=== PATIENT | male | born 1965 | race Caucasian/White ===

== ENCOUNTER 2019-01-16 18:53 | Emergency (ER) | payer BC, SELFPAY ==
[2019-01-16 19:21] VITALS: BP 122/72; PULSE 97; RESP 22; TEMP 36.7; O2SAT 95; BMI 26.8
--- NOTE | 2019-01-16 20:35 | ED.PSYCH ---
HPI - Psych <JAZ Alberto - Last Filed: 01/16/19 21:47> General Chief Complaint: Psychiatric Symptoms Stated Complaint: Depressed/off meds Time Seen by Provider: 01/16/19 20:01 Source: patient Mode of arrival: ambulatory Limitations: no limitations History of Present Illness HPI Narrative: The patient is a 53-year-old male current smoker with history of bipolar disorder who presents with the depression. He states he is off his medications and would like refills of his medications. He states he has recently relocated to the area, and lapsed with his primary care. He denies any suicidal thoughts or ideations. He states he has had 3 drinks today but denies any illicit drug use. He denies any hallucinations. He is requesting refills of his medications to help get him through until his next PCP appointment. Related Data Previous Rx's Medication Instructions Recorded atomoxetine [Strattera] 80 mg PO QAM #14 cap 01/16/19 bupropion HCl [Wellbutrin XL] 300 mg PO QAM 14 Days #14 tab 01/16/19 gabapentin 600 mg PO TID 14 Days #42 tab 01/16/19 quetiapine [Seroquel] 200 mg PO BEDTIME 14 Days tab 01/16/19 Review of Systems <CHERYL Alberto - Last Filed: 01/16/19 21:47> Review of Systems GENERAL: Denies chills, fatigue, malaise, fever, sweats. HEENT: Denies sinus pain, ear pain, sore throat, difficulty swallowing, dizziness. RESPIRATORY: Denies dyspnea, cough, wheezing, hemoptysis, sputum. CARDIOVASCULAR: Denies chest pain, palpitations, orthopnea, edema, GASTROINTESTINAL: Denies nausea, vomiting, abdominal pain, diarrhea, constipation, melena. : Denies dysuria, frequency, incontinence, hematuria, urinary retention. MUSCULOSKELETAL: denies weakness, joint pain, or bony pain SKIN: Denies rash, skin lesions, or other NEUROLOGIC: Denies weakness, headache, numbness, change in speech, confusion, seizures, incoordination. PSYCHIATRIC: See HPI 12 point review of systems is negative except for those stated above PFSH <CHERYL Alberto - Last Filed: 01/16/19 21:47> Medical History (Updated 01/16/19 @ 21:45 by JAZ Alberto) Bipolar affect, depressed (Acute) Social History Smoking Status: Current every day smoker Social History Smoking Status: Current every day smoker Exam <JAZ Alberto - Last Filed: 01/16/19 21:47> Narrative Exam Narrative: GENERAL: This is a well-nourished, well-developed patient, no acute distress HEAD: Atraumatic. Normocephalic. No temporal or scalp tenderness. EYES: Pupils equal round and reactive. Extraocular motions intact. No scleral icterus. No injection or drainage. NECK: Trachea midline. No JVD or lymphadenopathy. Supple, nontender, no meningeal signs. CARDIOVASCULAR: Regular rate and rhythm RESPIRATORY: Clear to auscultation. Breath sounds equal bilaterally. No wheezes, rales, or rhonchi. No cough. No increased respiratory effort. No accessory muscle use. GASTROINTESTINAL: Abdomen soft, non-tender, nondistended. No hepato-splenomegaly, or palpable masses. No guarding. Active bowel sounds all 4 quadrants EXTREMITIES: No clubbing, cyanosis, or edema. No joint tenderness, effusion, or edema noted. BACK: Nontender without deformity or crepitance. No flank tenderness. NEURO: AOx3. SKIN: No rash or erythema. Initial Vital Signs Initial Vital Signs: Vital Signs Temperature 98.1 F 01/16/19 19:21 Pulse Rate 97 H 01/16/19 19:21 Respiratory Rate 22 01/16/19 19:21 Blood Pressure 122/72 01/16/19 19:21 Pulse Oximetry 95 01/16/19 19:21 <Maxime Naqvi DO - Last Filed: 01/17/19 02:42> Initial Vital Signs Initial Vital Signs: Vital Signs Temperature 98.1 F 01/16/19 19:21 Pulse Rate 97 H 01/16/19 19:21 Respiratory Rate 22 01/16/19 19:21 Blood Pressure 122/72 01/16/19 19:21 Pulse Oximetry 95 01/16/19 19:21 Course <JAZ Alberto - Last Filed: 01/16/19 21:47> Vital Signs - 8 hr 01/16/19 19:21 01/16/19 21:19 Temperature 98.1 F Pulse Rate 97 H 82 Respiratory Rate 22 14 Blood Pressure 122/72 141/82 H Pulse Oximetry 95 99 <Maxime DO Driss - Last Filed: 01/17/19 02:42> Vital Signs - 8 hr 01/16/19 19:21 01/16/19 21:19 Temperature 98.1 F Pulse Rate 97 H 82 Respiratory Rate 22 14 Blood Pressure 122/72 141/82 H Pulse Oximetry 95 99 MDM - Psych <JULY Alberto-BC - Last Filed: 01/16/19 21:47> MDM Narrative Medical decision making narrative: The patient is a 53-year-old male who presents requesting medication refills for his antidepressant medication. He is requesting refills for Seroquel gabapentin Wellbutrin and Strattera. Given that of these are controlled, he denies any suicidal ideation or plan and denies any homicidal ideation or plan, I am okay to give him 2 weeks worth of these medications. I discussed at length coming back to the emergency department for any acute concerns such as suicidal ideation or homicidal ideation. Patient states understanding and has no questions or concerns. I did give him contact information for the [facility] health coordinator to help establish a local PCP. No questions or concerns on discharge. Discharge Plan Departure Patient Disposition: Home Clinical Impression: Medication refill Discharge Date/Time: 01/16/19 21:20 Interventions: ED Discharge Assessment Last Done: 01/16/19 21:19 Instructions: Depression, DI for Bipolar Disorder Activity Restrictions/Additional Instructions: I have given you 2 weeks worth of her psychiatric medications. Please follow up with primary care provider. I have given you contact information for the [facility] resource teacher, who can help you identify a primary Care provider. Please come back to the emergency department for any acute concerns such as thoughts of hurting herself or anybody else. Prescriptions: New gabapentin 600 mg tablet 600 mg PO TID 14 Days Qty: 42 RF: 0 quetiapine [Seroquel] 100 mg tablet 200 mg PO BEDTIME 14 Days RF: 0 bupropion HCl [Wellbutrin XL] 300 mg tablet extended release 24 hr 300 mg PO QAM 14 Days Qty: 14 RF: 0 atomoxetine [Strattera] 80 mg capsule 80 mg PO QAM Qty: 14 RF: 0 Referrals: [facility] [Outside] <Maxime Naqvi DO - Last Filed: 01/17/19 02:42> Cosign ED Attending Debbie Attestation: I was immediately available in the department for consultation. Documentation has been reviewed. I agree with assessment and plan.
[2019-01-16 21:19] VITALS: BP 141/82; PULSE 82; RESP 14; O2SAT 99
== END 2019-01-16 21:20 | disposition home or self-care (01) ==
PROVIDERS: Emergency Provider Nurse Practitioner Family
DX: F32.89 Other specified depressive episodes (principal); Z76.0 Encounter for issue of repeat prescription
CPT/HCPCS: 99282

== ENCOUNTER 2019-02-20 18:40 | Emergency (ER) | payer SELFPAY ==
[2019-02-20 18:43] VITALS: BP 166/89; PULSE 121; RESP 22; TEMP 37.2; O2SAT 96; BMI 26.8
--- NOTE | 2019-02-20 18:51 | DI.RAD.S_ITS ---
PROCEDURE: XR CHEST 1V INDICATIONS: chest pain TECHNIQUE: One view of the chest was acquired. COMPARISON: None. FINDINGS: Surgical changes and devices: None. Lungs and pleura: Lungs are clear. No pleural effusions or pneumothorax. Mediastinum: Mediastinal contours appear normal. Heart size is normal. Bones and chest wall: No suspicious bony lesions. Overlying soft tissues appear unremarkable. IMPRESSION: Normal chest. Dictated by: Lupe Younger M.D. on 02/20/2019 at 20:38 Approved by: Lupe Younger M.D. on 02/20/2019 at 20:39
--- NOTE | 2019-02-20 18:55 | ED.CHESTPAIN ---
HPI - Chest Pain General Chief Complaint: Chest Pain Stated Complaint: Feeling anxious and pain in chest Time Seen by Provider: 02/20/19 18:52 Source: patient Mode of arrival: ambulatory Limitations: no limitations History of Present Illness HPI narrative: Patient is a 53-year-old male. No prior cardiac history. States that he has had chest discomfort for the past 4 days. He states it has been eye constant discomfort for the past 4 days. He is feeling very anxious about this. Occasional palpitations. He was concerned that he potentially has mixed of some of his psychiatric medications. He states he is bipolar 1 disorder. Does not have a primary provider. He currently states he is not anxious. Not suicidal. Related Data Previous Rx's Medication Instructions Recorded atomoxetine 80 mg capsule 80 mg PO QAM #30 cap 02/02/19 divalproex ER 500 mg 2,000 mg PO BEDTIME #120 tab 02/02/19 tablet,extended release 24 hr quetiapine 25 mg tablet 25 mg PO BID #60 tab 02/02/19 Allergies Allergy/AdvReac Type Severity Reaction Status Date / Time No Known Drug Allergies Allergy Unverified 01/26/19 10:06 Review of Systems Constitutional Denies headache(s) ENT Ears, Nose, Mouth, and Throat: Denies headache(s) Cardiovascular Reports chest pain, Denies edema, Denies palpitations and Denies dyspnea Respiratory Denies cough and Denies dyspnea Gastrointestinal Gastrointestinal: Denies abdominal pain, Denies nausea and Denies vomiting Musculoskeletal Denies myalgias and Denies arthralgias Integumentary/Breasts Denies rash Neurologic Denies behavioral changes, Denies confusion and Denies headache(s) Psychiatric Denies behavioral changes, Denies confusion, Denies homicidal ideation and Denies suicidal ideation Endocrine Denies palpitations Hematologic/Lymphatic Denies easy bleeding and Denies easy bruising [facility] Medical History Bipolar affect, depressed (Acute) Social History Smoking Status: Current every day smoker Social History Smoking Status: Current every day smoker Exam Initial Vital Signs Initial Vital Signs: Vital Signs Temperature 99.0 F 02/20/19 18:43 Pulse Rate 121 H 02/20/19 18:43 Respiratory Rate 22 02/20/19 18:43 Blood Pressure 166/89 H 02/20/19 18:43 Pulse Oximetry 96 02/20/19 18:43 Const General: cooperative, comfortable, well developed, well groomed and No acute distress Orientation: alert, awake and oriented x3 HENMT Head: normal to inspection and normocephalic Resp Effort & Inspection: normal respiratory effort Auscultation: clear to auscultation bilaterally Cardio Rate: tachycardic Rhythm: regular rhythm Pulses: radial pulses present GI Inspection: non-distended Skin Lesions: no lesions Rashes: no rashes Neuro General: alert, awake and oriented x3 Cognition: normal cognition Speech: speech normal Gait: normal gait Motor: muscle tone normal throughout Sensory Exam: no sensory deficits noted Extrem General: normal to inspection, capillary refill normal and No edema Psych Appearance: grossly normal and well kempt Attitude: cooperative Thought Content: suicidality Judgment: judgment good Scores GCS [place] coma scale eye opening: Spontaneous Shasta coma scale verbal response: Orientated [place] coma scale motor response: Obey commands D[place]in coma scale total score: 15 HEART Score Heart Score history: Slightly Suspicious Heart Score EKG: Normal Heart Score Age: 45-64 years old Heart Score risk factors: No known risk factors Heart Score troponin: < or = to normal limit Heart Score Total: 1 PERC Score Age greater than or equal to 50 years: Yes Heart rate greater than or equal to 100 bpm: Yes Room Air O2 Sat less than 95%: No Unilateral leg swelling: No Recent trauma or surgery: No Hemoptysis: No Prior PE or DVT: No Hormone Use: No Total PERC Score: 2 Course Orders Ordered: ED Orders 02/20/19 18:47 EKG-12 Lead Stat 02/20/19 18:51 XR chest 1V Stat 02/20/19 19:00 Acetaminophen Stat Complete Blood Count AUTO DIFF Stat Comprehensive Metabolic Panel Stat D Dimer Stat Ethanol (ETOH) Stat Lipase Stat Partial Thromboplastin Time Stat Prothrombin Time INR Stat Salicylate Stat Thyroid Stimulating Hormone Stat Troponin & CK Cardiac Panel Stat 02/20/19 20:59 Urine Drug Screen, Rapid Stat Vital Signs - 8 hr 02/20/19 18:43 02/20/19 19:12 02/20/19 20:00 Temperature 99.0 F Pulse Rate 121 H 106 H 98 H Respiratory Rate 22 18 Blood Pressure 166/89 H Blood Pressure [Left Arm] 149/92 H 164/100 H Pulse Oximetry 96 98 100 02/20/19 21:00 02/20/19 21:34 Temperature 98.6 F Pulse Rate 95 H 94 H Respiratory Rate 16 16 Blood Pressure 161/90 H Blood Pressure [Left Arm] 160/99 H Pulse Oximetry 98 98 MDM - Chest Pain Lab Data Attestation: I reviewed the patient's lab results. Result diagrams: 02/20/19 19:00 02/20/19 19:00 Lab Results 02/20/19 02/20/19 02/20/19 Range/Units 19:00 19:00 19:00 WBC 7.7 (4.5-11.0) X10^3/uL RBC 4.50 (4.5-5.9) X10^6/uL Hgb 13.7 (13.5-17.5) g/dL Hct 40.2 L (41-53) % MCV 89.5 (80-100) fL MCH 30.4 (26-34) PG MCHC 34.0 (30-36) % RDW 14.7 (11.6-14.8) % Plt Count 182 (150-400) X10^3/uL Neut % (Auto) 59.0 (50-75) % Lymph % (Auto) 29.6 (25-40) % Monroe % (Auto) 9.3 (3-14) % Eos % (Auto) 1.7 L (2-4) % Baso % (Auto) 0.4 (0-2) % Neut # (Auto) 4500 (7948-5655) /uL Lymph # (Auto) 2300 (4920-6529) /uL Monroe # (Auto) 700 (0-900) /uL Eos # (Auto) 100 (0-450) /uL Baso # (Auto) 0 (0-100) /uL PT 10.3 (10.1-12.7) SECONDS INR 0.9 (0.9-1.3) APTT 32 (26.4-36.2) SECONDS D-Dimer (<230) ng/mL Sodium 142 (137-145) mmol/L Potassium 4.1 (3.4-5.1) mmol/L Chloride 106 (98-107) mmol/L Carbon Dioxide 26 (22-32) mmol/L BUN 16 (9-20) mg/dL Creatinine 1.10 (0.66-1.25) mg/dL Estimated GFR > 60.0 (>60) mL/min BUN/Creatinine Ratio 14.5 (6-22) Glucose 85 (70-100) mg/dL Calcium 9.3 (8.4-10.2) mg/dL Total Bilirubin 0.6 (0.2-1.3) mg/dL AST 23 (17-59) IU/L ALT 21 (21-72) IU/L Alkaline Phosphatase 108 (38-126) U/L Total Creatine Kinase 161 (55-170) U/L CK-MB (CK-2) 1.84 (<2.37) ng/mL CK-MB (CK-2) Rel Index 1.1 L (1.5-5.0) % Troponin I < 0.012 (0.01-0.034) ng/mL Total Protein 6.7 (6.3-8.2) g/dL Albumin 4.0 (3.5-5.0) g/dL Globulin 2.7 (1.7-4.1) g/dL Albumin/Globulin Ratio 1.5 (1.0-2.8) Lipase 44 (23-300) U/L TSH (0.47-4.68) uIU/mL Salicylates (<20) mg/dL Urine Opiates Screen (Negative) Ur Oxycodone Screen (Negative) Urine Methadone Screen (Negative) Acetaminophen (10-30) ug/mL Ur Barbiturates Screen (Negative) U Tricyclic Antidepress (Negative) Ur Phencyclidine Scrn (Negative) Ur Amphetamines Screen (Negative) U Methamphetamines Scrn (Negative) Ur MDMA Scrn (Ecstasy) (Negative) U Benzodiazepines Scrn (Negative) Urine Cocaine Screen (Negative) U Marijuana (THC) Screen (Negative) Ethyl Alcohol mg/dL 02/20/19 02/20/19 02/20/19 Range/Units 19:00 19:00 19:00 WBC (4.5-11.0) X10^3/uL RBC (4.5-5.9) X10^6/uL Hgb (13.5-17.5) g/dL Hct (41-53) % MCV (80-100) fL MCH (26-34) PG MCHC (30-36) % RDW (11.6-14.8) % Plt Count (150-400) X10^3/uL Neut % (Auto) (50-75) % Lymph % (Auto) (25-40) % Monroe % (Auto) (3-14) % Eos % (Auto) (2-4) % Baso % (Auto) (0-2) % Neut # (Auto) (2603-5425) /uL Lymph # (Auto) (6884-7069) /uL Monroe # (Auto) (0-900) /uL Eos # (Auto) (0-450) /uL Baso # (Auto) (0-100) /uL PT (10.1-12.7) SECONDS INR (0.9-1.3) APTT (26.4-36.2) SECONDS D-Dimer 202 (<230) ng/mL Sodium (137-145) mmol/L Potassium (3.4-5.1) mmol/L Chloride (98-107) mmol/L Carbon Dioxide (22-32) mmol/L BUN (9-20) mg/dL Creatinine (0.66-1.25) mg/dL Estimated GFR (>60) mL/min BUN/Creatinine Ratio (6-22) Glucose (70-100) mg/dL Calcium (8.4-10.2) mg/dL Total Bilirubin (0.2-1.3) mg/dL AST (17-59) IU/L ALT (21-72) IU/L Alkaline Phosphatase (38-126) U/L Total Creatine Kinase (55-170) U/L CK-MB (CK-2) (<2.37) ng/mL CK-MB (CK-2) Rel Index (1.5-5.0) % Troponin I (0.01-0.034) ng/mL Total Protein (6.3-8.2) g/dL Albumin (3.5-5.0) g/dL Globulin (1.7-4.1) g/dL Albumin/Globulin Ratio (1.0-2.8) Lipase (23-300) U/L TSH 0.33 L (0.47-4.68) uIU/mL Salicylates < 1.0 (<20) mg/dL Urine Opiates Screen (Negative) Ur Oxycodone Screen (Negative) Urine Methadone Screen (Negative) Acetaminophen < 10 L (10-30) ug/mL Ur Barbiturates Screen (Negative) U Tricyclic Antidepress (Negative) Ur Phencyclidine Scrn (Negative) Ur Amphetamines Screen (Negative) U Methamphetamines Scrn (Negative) Ur MDMA Scrn (Ecstasy) (Negative) U Benzodiazepines Scrn (Negative) Urine Cocaine Screen (Negative) U Marijuana (THC) Screen (Negative) Ethyl Alcohol < 10 mg/dL 02/20/19 Range/Units 20:59 WBC (4.5-11.0) X10^3/uL RBC (4.5-5.9) X10^6/uL Hgb (13.5-17.5) g/dL Hct (41-53) % MCV (80-100) fL MCH (26-34) PG MCHC (30-36) % RDW (11.6-14.8) % Plt Count (150-400) X10^3/uL Neut % (Auto) (50-75) % Lymph % (Auto) (25-40) % Monroe % (Auto) (3-14) % Eos % (Auto) (2-4) % Baso % (Auto) (0-2) % Neut # (Auto) (4446-6677) /uL Lymph # (Auto) (9263-1062) /uL Monroe # (Auto) (0-900) /uL Eos # (Auto) (0-450) /uL Baso # (Auto) (0-100) /uL PT (10.1-12.7) SECONDS INR (0.9-1.3) APTT (26.4-36.2) SECONDS D-Dimer (<230) ng/mL Sodium (137-145) mmol/L Potassium (3.4-5.1) mmol/L Chloride (98-107) mmol/L Carbon Dioxide (22-32) mmol/L BUN (9-20) mg/dL Creatinine (0.66-1.25) mg/dL Estimated GFR (>60) mL/min BUN/Creatinine Ratio (6-22) Glucose (70-100) mg/dL Calcium (8.4-10.2) mg/dL Total Bilirubin (0.2-1.3) mg/dL AST (17-59) IU/L ALT (21-72) IU/L Alkaline Phosphatase (38-126) U/L Total Creatine Kinase (55-170) U/L CK-MB (CK-2) (<2.37) ng/mL CK-MB (CK-2) Rel Index (1.5-5.0) % Troponin I (0.01-0.034) ng/mL Total Protein (6.3-8.2) g/dL Albumin (3.5-5.0) g/dL Globulin (1.7-4.1) g/dL Albumin/Globulin Ratio (1.0-2.8) Lipase (23-300) U/L TSH (0.47-4.68) uIU/mL Salicylates (<20) mg/dL Urine Opiates Screen Negative (Negative) Ur Oxycodone Screen Negative (Negative) Urine Methadone Screen Negative (Negative) Acetaminophen (10-30) ug/mL Ur Barbiturates Screen Negative (Negative) U Tricyclic Antidepress Positive H (Negative) Ur Phencyclidine Scrn Negative (Negative) Ur Amphetamines Screen Negative (Negative) U Methamphetamines Scrn Negative (Negative) Ur MDMA Scrn (Ecstasy) Negative (Negative) U Benzodiazepines Scrn Negative (Negative) Urine Cocaine Screen Negative (Negative) U Marijuana (THC) Screen Positive H (Negative) Ethyl Alcohol mg/dL Imaging Data Chest x-ray: Radiologist's impression: [address] [address] XRay Report Signed Patient: CheleYemi davis R#: [id number] : 1965Acct:[id number] Age/Sex: 53 / MDate of Service: 02/20/19 Loc: ED Accession Number: [id number] Procedure: XR chest 1V Ordering Provider: Yemi Hummel D.O. PROCEDURE: XR CHEST 1V INDICATIONS: chest pain TECHNIQUE: One view of the chest was acquired. COMPARISON: None. FINDINGS: Surgical changes and devices: None. Lungs and pleura: Lungs are clear. No pleural effusions or pneumothorax. Mediastinum: Mediastinal contours appear normal. Heart size is normal. Bones and chest wall: No suspicious bony lesions. Overlying soft tissues appear unremarkable. IMPRESSION: Normal chest. Dictated by: Lupe Younger M.D. on 02/20/2019 at 20:38 Approved by: Lupe Younger M.D. on 02/20/2019 at 20:39 ECG Data Attestation: I personally reviewed and interpreted this ECG as follows: Prior ECG tracings: not available for review Interpretation: Sinus tachycardia Ventricular rate of 113 Normal axis Normal QRS Normal QTC Occasional PVCs No ST T wave changes MDM Narrative Medical decision making narrative: Chest x-ray is unremarkable, EKG shows PVCs but no ST changes, troponin is negative after 4 days of discomfort. Heart score 1, PERC positive however D-dimer is negative. His heart rate did improve after being here in the emergency department. Patient was given the phone number for the health vp human resources to help him establish a primary provider. Will hold on further workup for now. He is not suicidal, not homicidal, is alert oriented x3, my opinion is the capacity to make decisions, GCS 15, he was given return precautions and follow-up instructions. He was asking to go home. He expressed understanding and agreement with plan. Discharge Plan Departure Patient Disposition: Home Clinical Impression: Atypical chest pain Discharge Date/Time: 02/20/19 21:35 Interventions: ED Discharge Assessment Last Done: 02/20/19 21:34 Instructions: DI for Atypical Chest Pain Activity Restrictions/Additional Instructions: On Friday contact the health vp human resources here at the hospital at [phone] to establish a primary provider. Continue all of your medications as directed. Return to the emergency department for any new or worsening symptoms. Prescriptions: No Action atomoxetine [Strattera] 80 mg capsule 80 mg PO QAM Qty: 30 RF: 3 divalproex 500 mg tablet extended release 24 hr 2,000 mg PO BEDTIME Qty: 120 RF: 3 quetiapine 25 mg tablet 25 mg PO BID Qty: 60 RF: 3
[2019-02-20 19:12] VITALS: BP 149/92; PULSE 106; RESP 18; O2SAT 98
[2019-02-20 19:16] LABS: Add Manual Diff / Slide Review NO; Basophils Absolute Auto 0 /uL (0-100); Basophils Percent Auto 0.4 % (0-2); Eosinophils Absolute Auto 100 /uL (0-450); Eosinophils Percent Auto 1.7 % (2-4); Hematocrit 40.2 % (41-53); Hemoglobin 13.7 g/dL (13.5-17.5); Lymphocytes Absolute Auto 2300 /uL (1100-4500); Lymphocytes Percent Auto 29.6 % (25-40); Mean Corpuscular Hemoglobin 30.4 PG (26-34); Mean Corpuscular Volume 89.5 fL (80-100); Monocytes Absolute Auto 700 /uL (0-900); Monocytes Percent Auto 9.3 % (3-14); Neutrophils Absolute Auto 4500 /uL (1500-7000); Platelet Count 182 X10^3/uL (150-400); Red Cell Distribution Width 14.7 % (11.6-14.8); White Blood Cell Count 7.7 X10^3/uL (4.5-11.0)
[2019-02-20 19:31] LABS: INR 0.9 (0.9-1.3); Prothrombin Time 10.3 SECONDS (10.1-12.7)
[2019-02-20 19:33] LABS: PTT Partial Thromboplastin Tim 32 SECONDS (26.4-36.2)
[2019-02-20 19:34] LABS: Acetaminophen < 10 ug/mL (10-30); Ethanol (ETOH) < 10 mg/dL; Salicylate < 1.0 mg/dL (<20)
[2019-02-20 19:41] LABS: D Dimer 202 ng/mL (<230)
[2019-02-20 19:46] LABS: Alanine Aminotransferase 21 IU/L (21-72); Albumin Globulin Ratio 1.5 (1.0-2.8); Alkaline Phosphatase 108 U/L (38-126); Aspartate Aminotransferase 23 IU/L (17-59); BUN Creatinine Ratio 14.5 (6-22); Bilirubin Total 0.6 mg/dL (0.2-1.3); Blood Urea Nitrogen 16 mg/dL (9-20); Calcium 9.3 mg/dL (8.4-10.2); Carbon Dioxide 26 mmol/L (22-32); Chloride 106 mmol/L (98-107); Creatine Kinase 161 U/L (55-170); Estimated Glomerular Filt Rate > 60.0 mL/min (>60); Globulin 2.7 g/dL (1.7-4.1); Glucose 85 mg/dL (70-100); HEMOLYSIS < 15 (0-50); Lipase 44 U/L (23-300); Potassium 4.1 mmol/L (3.4-5.1); Sodium 142 mmol/L (137-145); Total Protein 6.7 g/dL (6.3-8.2)
[2019-02-20 19:57] LABS: Troponin I < 0.012 ng/mL (0.01-0.034)
[2019-02-20 20:00] VITALS: BP 164/100; PULSE 98; O2SAT 100
[2019-02-20 20:13] LABS: CKMB % Relative Index 1.1 % (1.5-5.0); Creatine Kinase MB 1.84 ng/mL (<2.37)
[2019-02-20 20:17] LABS: Thyroid Stimulating Hormone 0.33 uIU/mL (0.47-4.68)
[2019-02-20 21:00] VITALS: BP 160/99; PULSE 95; RESP 16; O2SAT 98
[2019-02-20 21:08] LABS: Urine Amphetamines Negative (Negative); Urine Barbiturates Negative (Negative); Urine Benzodiazepines Negative (Negative); Urine Cocaine Negative (Negative); Urine MDMA Negative (Negative); Urine Methadone Negative (Negative); Urine Methamphetamines Negative (Negative); Urine Morphine/Opi cutoff 2000 Negative (Negative); Urine Oxycodone Negative (Negative); Urine Phencyclidine Negative (Negative); Urine Tetrahydrocannabinol Positive (Negative); Urine Tricyclic Antidepressant Positive (Negative)
[2019-02-20 21:34] VITALS: BP 161/90; PULSE 94; RESP 16; TEMP 37; O2SAT 98
== END 2019-02-20 21:35 | disposition home or self-care (01) ==
PROVIDERS: Emergency Provider Emergency Medicine
DX: R07.89 Other chest pain (principal); R00.0 Tachycardia, unspecified
CPT/HCPCS: 36591; 71045; 80053; 80305; 80320; 80329; 82550; 82553; 83690; 84443; 84484; 85025; 85379; 85610; 85730; 93005; 93010; 99283; 99285; G0480

== ENCOUNTER → 2019-04-13 08:08 | Outpatient (CLI) | payer OTHER, MEDICAID, SELFPAY ==
[2019-04-13 09:33] LABS: Urine Amphetamines Negative (Negative); Urine Barbiturates Negative (Negative); Urine Benzodiazepines Negative (Negative); Urine Cocaine Negative (Negative); Urine MDMA Negative (Negative); Urine Methadone Negative (Negative); Urine Methamphetamines Positive (Negative); Urine Morphine/Opi cutoff 2000 Negative (Negative); Urine Oxycodone Negative (Negative); Urine Phencyclidine Negative (Negative); Urine Tetrahydrocannabinol Negative (Negative); Urine Tricyclic Antidepressant Positive (Negative)
[2019-04-13 09:48] LABS: Alanine Aminotransferase 47 IU/L (21-72); Albumin 4.2 g/dL (3.5-5.0); Albumin Globulin Ratio 1.4 (1.0-2.8); Alkaline Phosphatase 117 U/L (38-126); Aspartate Aminotransferase 33 IU/L (17-59); Bilirubin Total 0.5 mg/dL (0.2-1.3); Bilirubin Unconjugated 0.2 mg/dL (0.0-1.1); Blood Urea Nitrogen 21 mg/dL (9-20); Calcium 9.3 mg/dL (8.4-10.2); Carbon Dioxide 28 mmol/L (22-32); Chloride 104 mmol/L (98-107); Cholesterol 239 mg/dL (140-199); Estimated Glomerular Filt Rate > 60.0 mL/min (>60); Globulin 2.9 g/dL (1.7-4.1); Glucose 97 mg/dL (70-100); HDL Cholesterol 45 mg/dL (40-60); HEMOLYSIS < 15 (0-50); LDL Cholesterol Calculated 143 mg/dL (<100); Potassium 4.1 mmol/L (3.4-5.1); Sodium 141 mmol/L (137-145); Total Protein 7.1 g/dL (6.3-8.2); Triglycerides 257 mg/dL (35-150)
[2019-04-13 10:00] LABS: Free T4, Direct Thyroxine 0.78 ng/dL (0.78-2.19)
[2019-04-13 10:14] LABS: Thyroid Stimulating Hormone 1.15 uIU/mL (0.47-4.68)
== END ==
PROVIDERS: Visit Provider Psychiatry & Neurology Psychiatry
DX: F31.63 Bipolar disorder, current episode mixed, severe, without psychotic features (principal)
CPT/HCPCS: 36415; 80053; 80061; 80076; 80305; 84439; 84443

== ENCOUNTER 2020-07-06 19:41 | Emergency (ER) | payer BC, SELFPAY ==
[2020-07-06 20:40] VITALS: BP 145/97; PULSE 95; RESP 18; TEMP 36.7; O2SAT 99; BMI 27.9
[2020-07-06 21:03] LABS: Ur Creatinine Normal (Normal); Ur Specific Gravity Normal (Normal); Urine pH Normal (Normal)
[2020-07-06 21:04] LABS: UR Morphine/Opiate cutoff 300 Negative (Negative); Urine Amphetamines Negative (Negative); Urine Barbiturates Negative (Negative); Urine Benzodiazepines Negative (Negative); Urine Cocaine Negative (Negative); Urine MDMA Negative (Negative); Urine Methadone Negative (Negative); Urine Methamphetamines Negative (Negative); Urine Oxycodone Negative (Negative); Urine Phencyclidine Negative (Negative); Urine Tetrahydrocannabinol Negative (Negative); Urine Tricyclic Antidepressant Positive (Negative)
[2020-07-06 21:13] LABS: Add Manual Diff / Slide Review NO; Basophils Absolute Auto 100 /uL (0-100); Basophils Percent Auto 0.5 % (0-2); Eosinophils Absolute Auto 300 /uL (0-450); Eosinophils Percent Auto 2.7 % (2-4); Hematocrit 50.2 % (41-53); Hemoglobin 16.8 g/dL (13.5-17.5); Lymphocytes Absolute Auto 4000 /uL (1100-4500); Lymphocytes Percent Auto 36.5 % (25-40); Mean Corpuscular HGB Conc 33.5 % (30-36); Mean Corpuscular Hemoglobin 30.5 PG (26-34); Monocytes Absolute Auto 1200 /uL (0-900); Monocytes Percent Auto 10.4 % (3-14); Neutrophils Absolute Auto 5500 /uL (1500-7000); Neutrophils Percent Auto 49.9 % (50-75); Platelet Count 190 X10^3/uL (150-400); Red Blood Cell Count 5.52 X10^6/uL (4.5-5.9); Red Cell Distribution Width 13.1 % (11.6-14.8); White Blood Cell Count 11.1 X10^3/uL (4.5-11.0)
[2020-07-06 21:17] LABS: Acetaminophen < 10 ug/mL (10-30); Alanine Aminotransferase 26 IU/L (<50); Albumin 4.5 g/dL (3.5-5.0); Albumin Globulin Ratio 1.5 (1.0-2.8); Alkaline Phosphatase 128 U/L (38-126); Aspartate Aminotransferase 24 IU/L (17-59); Bilirubin Total 0.3 mg/dL (0.2-1.3); Blood Urea Nitrogen 20 mg/dL (9-20); Calcium 9.1 mg/dL (8.4-10.2); Carbon Dioxide 28 mmol/L (22-32); Chloride 109 mmol/L (98-107); Estimated Glomerular Filt Rate > 60.0 mL/min (>60); Ethanol (ETOH) 73 mg/dL; Globulin 3.1 g/dL (1.7-4.1); Glucose 95 mg/dL (70-100); HEMOLYSIS < 15 (0-50); Potassium 4.3 mmol/L (3.4-5.1); Salicylate < 1.0 mg/dL (<20); Sodium 143 mmol/L (137-145); Total Protein 7.6 g/dL (6.3-8.2)
[2020-07-06 21:44] LABS: Free T4, Direct Thyroxine 0.88 ng/dL (0.78-2.19)
[2020-07-06 21:58] LABS: Thyroid Stimulating Hormone 1.28 uIU/mL (0.47-4.68)
--- NOTE | 2020-07-06 22:48 | PC.NURSE ---
pt has been sitting with police from time of arrival until 2244 when security police officer left
[2020-07-06 23:16] LABS: Bacteria Urine None Seen
[2020-07-06 23:29] VITALS: BP 159/87; PULSE 86; RESP 18; O2SAT 98
[2020-07-06 23:29] LABS: Appearance Urine UA CLEAR; Bilirubin Urine UA NEGATIVE (NEGATIVE); Color Urine UA YELLOW; Glucose Urine UA NEGATIVE (Negative); Ketones Urine UA TRACE (NEGATIVE); Leukocyte Esterase Urine UA NEGATIVE (NEGATIVE); Nitrite Urine UA NEGATIVE (Negative); Occult Blood Urine UA 2+ (Negative); Protein Urine UA NEGATIVE (Negative); Specific Gravity Urine UA 1.025 (1.000-1.035); Urobilinogen Urine UA 0.2 E.U./dL (0.2)
[2020-07-06 23:44] LABS: Culture Indicated Urine Cult Not Indicated; RBC Urine 1-5/HPF (0-5/HPF); Uric Acid Crystals Urine Few; WBC Urine 1-5/HPF (0-5/HPF)
[2020-07-07 04:00] VITALS: BP 143/91; PULSE 88; RESP 18; O2SAT 99
--- NOTE | 2020-07-07 06:18 | ED.PSYCH ---
HPI - Psych <Maxime Naqvi - Last Filed: 07/07/20 17:36> General Chief Complaint: Psychiatric Symptoms Stated Complaint: INDU, brought by Long Term Time Seen by Provider: 07/06/20 21:36 Source: patient and police Mode of arrival: Ambulatory Limitations: no limitations History of Present Illness HPI Narrative: 55-year-old male smoker with history of alcohol abuse and mental health diagnoses presents by police escort with a request for eye TA due to patient making comments of suicidal and homicidal ideation. The patient had just returned from a trauma and PTSD, present floor the and rather quickly [place] local [place]. His sister controls his finances and when she saw that he had been spending money she transferred money out of his control. He became angered and (as noted in the police paperwork) made comments that he was very upset and thought he might hurt somebody or himself. At that point police was notified and brought him here for evaluation. He did have a few drinks with denies any street drugs. He states otherwise he has been taking his medications as directed except for last night. Soon after arrival he denies suicidal or homicidal ideation MD complaint: suicidal ideation Onset (ago): hour(s) Duration: constant History of same: Yes Relieving factors: none Exacerbating factors: other Context: recent alcohol abuse and significant life stressor Associated psychiatric symptoms: depression, suicidal ideation and homicidal ideation Treatments prior to arrival: none If self harm: admits thoughts of self harm Related Data Home Medications Medication Instructions Recorded Confirmed aspirin 81 mg tablet,delayed 81 mg PO DAILY 07/01/19 04/10/20 release calcium 500 mg tablet 500 mg PO DAILY tab 07/01/19 04/10/20 cholecalciferol (vitamin D3) 25 1,000 unit PO DAILY 07/01/19 04/10/20 mcg (1,000 unit) capsule coenzyme Q10 60 mg tablet 60 mg PO DAILY 07/01/19 04/10/20 atomoxetine 80 mg capsule 80 mg PO DAILY 04/03/20 04/10/20 Previous Rx's Medication Instructions Recorded bupropion HCl 300 mg 24 hr tablet, 300 mg PO QAM #30 tab 12/27/19 extended release gabapentin 600 mg tablet 600 mg PO BID #60 tab 12/27/19 quetiapine 25 mg tablet 25 mg PO BID PRN #60 tab 02/14/20 atomoxetine 80 mg capsule 80 mg PO QAM #30 cap 03/08/20 divalproex 500 mg tablet,extended 2,000 mg PO BEDTIME #120 tab 03/08/20 release 24 hr quetiapine 200 mg tablet 200 mg PO BEDTIME #30 tab 03/08/20 Allergies Allergy/AdvReac Type Severity Reaction Status Date / Time No Known Drug Allergies Allergy Verified 07/06/20 20:40 Review of Systems <Maxime Naqvi DO - Last Filed: 07/07/20 17:36> Constitutional Constitutional: Denies chills, Denies fatigue, Denies fever(s), Denies frequent falls, Denies lethargy and Denies weakness Eyes Eyes: Denies change in vision, Denies eye discharge, Denies irritation and Denies loss of vision ENT Ears, Nose, Mouth, and Throat: Denies change in voice, Denies dizziness, Denies neck pain, Denies sore throat and Denies throat swelling Cardiovascular Cardiovascular: Denies chest pain, Denies irregular heart rhythm, Denies lightheadedness, Denies palpitations, Denies dyspnea, Denies dyspnea on exertion and Denies orthopnea Respiratory Respiratory: Denies cough, Denies dyspnea, Denies dyspnea on exertion and Denies wheezing Gastrointestinal Gastrointestinal: Denies abdominal pain, Denies change in bowel habits, Denies diarrhea, Denies nausea and Denies vomiting Musculoskeletal Musculoskeletal: Denies neck pain and Denies numbness Integumentary/Breasts Skin/Breast: Denies pruritus, Denies erythema, Denies rash and Denies wounds Neurologic Neurologic: Denies behavioral changes, Denies confusion, Denies dizziness, Denies frequent falls, Denies loss of vision, Denies numbness and Denies weakness Psychiatric Psychiatric: Denies anxiety, Denies behavioral changes, Denies confusion, Denies depression, Reports homicidal ideation and Reports suicidal ideation Endocrine Endocrine: Denies fatigue, Denies flushing and Denies palpitations Hematologic/Lymphatic Hematologic/Lymphatic: Denies easy bruising Allergic/Immunologic Allergic/Immunologic: Denies urticaria, Denies throat swelling and Denies wheezing Patient History <Maxime Naqvi DO - Last Filed: 07/07/20 17:36> Medical History Back pain Bipolar affect, depressed Bipolar disorder Medication management Polysubstance dependence in early, early partial, sustained full, or sustained partial remission Social History Smoking Status: Current every day smoker Smoking Status: Current every day smoker alcohol intake frequency: holidays/special occasions only Substance Use Type: former substance user and methamphetamine Exam <Maxime Naqvi DO - Last Filed: 07/07/20 17:36> Narrative Exam Narrative: GENERAL: [55] year old patient appears stated age. Well-nourished, well-developed patient, in mild distress. HEAD: Atraumatic. Normocephalic. EYES: Pupils equal round and reactive. Extraocular motions intact. No scleral icterus. No injection or drainage. ENT: Nose without bleeding, purulent drainage. Throat without erythema, tonsillar hypertrophy or exudate. Airway patent. NECK: Trachea midline. Non tender CARDIOVASCULAR: Regular rate and rhythm without murmurs, gallops, or rubs. RESPIRATORY: Clear to auscultation. Breath sounds equal bilaterally. No wheezes, rales, or rhonchi. GASTROINTESTINAL: Abdomen soft, non-tender, nondistended. EXTREMITIES: No edema or joint tenderness. BACK: Nontender without deformity or crepitance. No flank tenderness. NEURO: AOx3. SKIN: No rash or erythema of visible areas Initial Vital Signs Initial Vital Signs: Vital Signs Temperature 98.1 F 07/06/20 20:40 Pulse Rate 95 H 07/06/20 20:40 Respiratory Rate 18 07/06/20 20:40 Blood Pressure 145/97 H 07/06/20 20:40 Pulse Oximetry 99 07/06/20 20:40 <Quiana Gimenez DO - Last Filed: 07/07/20 18:31> Initial Vital Signs Initial Vital Signs: Vital Signs Temperature 98.1 F 07/06/20 20:40 Pulse Rate 95 H 07/06/20 20:40 Respiratory Rate 18 07/06/20 20:40 Blood Pressure 145/97 H 07/06/20 20:40 Pulse Oximetry 99 07/06/20 20:40 Course <Maxime Naqvi DO - Last Filed: 07/07/20 17:36> Course Course Narrative: The patient was medically cleared rather early and has been cooperative for the duration of the evening. He does admit that he made the comments that he has accused of but states he is currently not feeling suicidal or homicidal. He is willing to meet with a social work job titles to discuss options for his safety [phone] - patient signed out to Dr. Gimenez for final disposition upon completion of SPORTS MEDICINE PHYSICIAN eval Orders Ordered: Discontinued Medications Bupropion HCl (Bupropion Sr 150 Mg Tab) 150 mg PO NOW ONE Stop: 07/07/20 06:19 Last Admin: 07/07/20 06:35 Dose: 150 mg Documented by: PEDRO Divalproex Sodium (Divalproex Er 250 Mg Tab) 2,000 mg PO NOW ONE Stop: 07/07/20 14:00 Last Admin: 07/07/20 14:38 Dose: 2,000 mg Documented by: THOR Gabapentin (Gabapentin 600 Mg Tablet) 600 mg PO NOW ONE Stop: 07/07/20 06:19 Last Admin: 07/07/20 06:35 Dose: 600 mg Documented by: PEDRO Lorazepam (Lorazepam 0.5 Mg Tablet) 1 mg PO NOW ONE Stop: 07/07/20 12:52 Last Admin: 07/07/20 13:03 Dose: 1 mg Documented by: THOR Nicotine (Nicotine 21 Mg Patch) 21 mg TOP NOW ONE Stop: 07/07/20 12:52 Quetiapine Fumarate (Quetiapine 25 Mg Tablet) 50 mg PO NOW ONE Stop: 07/07/20 14:00 Last Admin: 07/07/20 14:40 Dose: 50 mg Documented by: THOR Vital Signs Vital signs: Vital Signs - 8 hr 07/07/20 11:57 07/07/20 17:09 Pulse Rate 94 H 99 H Blood Pressure 141/91 H 137/103 H Pulse Oximetry 99 97 <Quiana Gimenez, DO - Last Filed: 07/07/20 18:31> Orders Ordered: Discontinued Medications Bupropion HCl (Bupropion Sr 150 Mg Tab) 150 mg PO NOW ONE Stop: 07/07/20 06:19 Last Admin: 07/07/20 06:35 Dose: 150 mg Documented by: PEDRO Divalproex Sodium (Divalproex Er 250 Mg Tab) 2,000 mg PO NOW ONE Stop: 07/07/20 14:00 Last Admin: 07/07/20 14:38 Dose: 2,000 mg Documented by: THOR Gabapentin (Gabapentin 600 Mg Tablet) 600 mg PO NOW ONE Stop: 07/07/20 06:19 Last Admin: 07/07/20 06:35 Dose: 600 mg Documented by: PEDRO Lorazepam (Lorazepam 0.5 Mg Tablet) 1 mg PO NOW ONE Stop: 07/07/20 12:52 Last Admin: 07/07/20 13:03 Dose: 1 mg Documented by: THOR Nicotine (Nicotine 21 Mg Patch) 21 mg TOP NOW ONE Stop: 07/07/20 12:52 Quetiapine Fumarate (Quetiapine 25 Mg Tablet) 50 mg PO NOW ONE Stop: 07/07/20 14:00 Last Admin: 07/07/20 14:40 Dose: 50 mg Documented by: THOR Vital Signs Vital signs: Vital Signs - 8 hr 07/07/20 11:57 07/07/20 17:09 Pulse Rate 94 H 99 H Blood Pressure 141/91 H 137/103 H Pulse Oximetry 99 97 MDM - Psych <Maxime Naqvi DO - Last Filed: 07/07/20 17:36> Lab Data Result diagrams: 07/06/20 20:59 07/06/20 20:59 Labs: Lab Results 07/06/20 07/06/20 07/06/20 Range/Units 20:49 20:49 20:59 WBC 11.1 H (4.5-11.0) X10^3/uL RBC 5.52 (4.5-5.9) X10^6/uL Hgb 16.8 (13.5-17.5) g/dL Hct 50.2 (41-53) % MCV 91.0 (80-100) fL MCH 30.5 (26-34) PG MCHC 33.5 (30-36) % RDW 13.1 (11.6-14.8) % Plt Count 190 (150-400) X10^3/uL Neut % (Auto) 49.9 L (50-75) % Lymph % (Auto) 36.5 (25-40) % Roosevelt % (Auto) 10.4 (3-14) % Eos % (Auto) 2.7 (2-4) % Baso % (Auto) 0.5 (0-2) % Neut # (Auto) 5500 (6483-5026) /uL Lymph # (Auto) 4000 (8920-6056) /uL Roosevelt # (Auto) 1200 H (0-900) /uL Eos # (Auto) 300 (0-450) /uL Baso # (Auto) 100 (0-100) /uL Sodium (137-145) mmol/L Potassium (3.4-5.1) mmol/L Chloride (98-107) mmol/L Carbon Dioxide (22-32) mmol/L BUN (9-20) mg/dL Creatinine (0.66-1.25) mg/dL Estimated GFR (>60) mL/min BUN/Creatinine Ratio (6-22) Glucose (70-100) mg/dL Calcium (8.4-10.2) mg/dL Total Bilirubin (0.2-1.3) mg/dL AST (17-59) IU/L ALT (<50) IU/L Alkaline Phosphatase (38-126) U/L Total Protein (6.3-8.2) g/dL Albumin (3.5-5.0) g/dL Globulin (1.7-4.1) g/dL Albumin/Globulin Ratio (1.0-2.8) TSH (0.47-4.68) uIU/mL Free T4 (0.78-2.19) ng/dL Urine Color Yellow Urine Appearance Clear Urine pH 5.0 (4.5-8.0) Ur Specific [place] 1.025 (1.000-1.035) Urine Protein Negative (Negative) Urine Glucose (UA) Negative (Negative) g/dL Urine Ketones Trace H (NEGATIVE) Urine Occult Blood 2+ H (Negative) Urine Nitrate Negative (Negative) Urine Bilirubin Negative (NEGATIVE) Urine Urobilinogen 0.2 (0.2) E.U./dL Ur Leukocyte Esterase Negative (NEGATIVE) Urine RBC 1-5/hpf (0-5/HPF) Urine WBC 1-5/hpf (0-5/HPF) Uric Acid Crystals Few H (None) Urine Bacteria None seen (None) Ur Culture Indicated? Cult not indicated Salicylates (<20) mg/dL U Opiates 300ng/mL cut Negative (Negative) Ur Oxycodone Screen Negative (Negative) Urine Methadone Screen Negative (Negative) Acetaminophen (10-30) ug/mL Ur Barbiturates Screen Negative (Negative) U Tricyclic Antidepress Positive H (Negative) Ur Phencyclidine Scrn Negative (Negative) Ur Amphetamines Screen Negative (Negative) U Methamphetamines Scrn Negative (Negative) Ur MDMA Scrn (Ecstasy) Negative (Negative) U Benzodiazepines Scrn Negative (Negative) Urine Cocaine Screen Negative (Negative) U Marijuana (THC) Screen Negative (Negative) Ethyl Alcohol ( - 10) mg/dL 07/06/20 07/06/20 Range/Units 20:59 20:59 WBC (4.5-11.0) X10^3/uL RBC (4.5-5.9) X10^6/uL Hgb (13.5-17.5) g/dL Hct (41-53) % MCV (80-100) fL MCH (26-34) PG MCHC (30-36) % RDW (11.6-14.8) % Plt Count (150-400) X10^3/uL Neut % (Auto) (50-75) % Lymph % (Auto) (25-40) % [place] % (Auto) (3-14) % Eos % (Auto) (2-4) % Baso % (Auto) (0-2) % Neut # (Auto) (4045-2435) /uL Lymph # (Auto) (0862-2845) /uL Roosevelt # (Auto) (0-900) /uL Eos # (Auto) (0-450) /uL Baso # (Auto) (0-100) /uL Sodium 143 (137-145) mmol/L Potassium 4.3 (3.4-5.1) mmol/L Chloride 109 H (98-107) mmol/L Carbon Dioxide 28 (22-32) mmol/L BUN 20 (9-20) mg/dL Creatinine 1.00 (0.66-1.25) mg/dL Estimated GFR > 60.0 (>60) mL/min BUN/Creatinine Ratio 20.0 (6-22) Glucose 95 (70-100) mg/dL Calcium 9.1 (8.4-10.2) mg/dL Total Bilirubin 0.3 (0.2-1.3) mg/dL AST 24 (17-59) IU/L ALT 26 (<50) IU/L Alkaline Phosphatase 128 H (38-126) U/L Total Protein 7.6 (6.3-8.2) g/dL Albumin 4.5 (3.5-5.0) g/dL Globulin 3.1 (1.7-4.1) g/dL Albumin/Globulin Ratio 1.5 (1.0-2.8) TSH 1.28 (0.47-4.68) uIU/mL Free T4 0.88 (0.78-2.19) ng/dL Urine Color Urine Appearance Urine pH (4.5-8.0) Ur Specific [place] (1.000-1.035) Urine Protein (Negative) Urine Glucose (UA) (Negative) g/dL Urine Ketones (NEGATIVE) Urine Occult Blood (Negative) Urine Nitrate (Negative) Urine Bilirubin (NEGATIVE) Urine Urobilinogen (0.2) E.U./dL Ur Leukocyte Esterase (NEGATIVE) Urine RBC (0-5/HPF) Urine WBC (0-5/HPF) Uric Acid Crystals (None) Urine Bacteria (None) Ur Culture Indicated? Salicylates < 1.0 (<20) mg/dL U Opiates 300ng/mL cut (Negative) Ur Oxycodone Screen (Negative) Urine Methadone Screen (Negative) Acetaminophen < 10 L (10-30) ug/mL Ur Barbiturates Screen (Negative) U Tricyclic Antidepress (Negative) Ur Phencyclidine Scrn (Negative) Ur Amphetamines Screen (Negative) U Methamphetamines Scrn (Negative) Ur MDMA Scrn (Ecstasy) (Negative) U Benzodiazepines Scrn (Negative) Urine Cocaine Screen (Negative) U Marijuana (THC) Screen (Negative) Ethyl Alcohol 73 H ( - 10) mg/dL <Quiana Gimenez, DO - Last Filed: 07/07/20 18:31> Lab Data Labs: Lab Results 07/06/20 07/06/20 07/06/20 Range/Units 20:49 20:49 20:59 WBC 11.1 H (4.5-11.0) X10^3/uL RBC 5.52 (4.5-5.9) X10^6/uL Hgb 16.8 (13.5-17.5) g/dL Hct 50.2 (41-53) % MCV 91.0 (80-100) fL MCH 30.5 (26-34) PG MCHC 33.5 (30-36) % RDW 13.1 (11.6-14.8) % Plt Count 190 (150-400) X10^3/uL Neut % (Auto) 49.9 L (50-75) % Lymph % (Auto) 36.5 (25-40) % [place] % (Auto) 10.4 (3-14) % Eos % (Auto) 2.7 (2-4) % Baso % (Auto) 0.5 (0-2) % Neut # (Auto) 5500 (0085-4588) /uL Lymph # (Auto) 4000 (1887-6568) /uL Roosevelt # (Auto) 1200 H (0-900) /uL Eos # (Auto) 300 (0-450) /uL Baso # (Auto) 100 (0-100) /uL Sodium (137-145) mmol/L Potassium (3.4-5.1) mmol/L Chloride (98-107) mmol/L Carbon Dioxide (22-32) mmol/L BUN (9-20) mg/dL Creatinine (0.66-1.25) mg/dL Estimated GFR (>60) mL/min BUN/Creatinine Ratio (6-22) Glucose (70-100) mg/dL Calcium (8.4-10.2) mg/dL Total Bilirubin (0.2-1.3) mg/dL AST (17-59) IU/L ALT (<50) IU/L Alkaline Phosphatase (38-126) U/L Total Protein (6.3-8.2) g/dL Albumin (3.5-5.0) g/dL Globulin (1.7-4.1) g/dL Albumin/Globulin Ratio (1.0-2.8) TSH (0.47-4.68) uIU/mL Free T4 (0.78-2.19) ng/dL Urine Color Yellow Urine Appearance Clear Urine pH 5.0 (4.5-8.0) Ur Specific [place] 1.025 (1.000-1.035) Urine Protein Negative (Negative) Urine Glucose (UA) Negative (Negative) g/dL Urine Ketones Trace H (NEGATIVE) Urine Occult Blood 2+ H (Negative) Urine Nitrate Negative (Negative) Urine Bilirubin Negative (NEGATIVE) Urine Urobilinogen 0.2 (0.2) E.U./dL Ur Leukocyte Esterase Negative (NEGATIVE) Urine RBC 1-5/hpf (0-5/HPF) Urine WBC 1-5/hpf (0-5/HPF) Uric Acid Crystals Few H (None) Urine Bacteria None seen (None) Ur Culture Indicated? Cult not indicated Salicylates (<20) mg/dL U Opiates 300ng/mL cut Negative (Negative) Ur Oxycodone Screen Negative (Negative) Urine Methadone Screen Negative (Negative) Acetaminophen (10-30) ug/mL Ur Barbiturates Screen Negative (Negative) U Tricyclic Antidepress Positive H (Negative) Ur Phencyclidine Scrn Negative (Negative) Ur Amphetamines Screen Negative (Negative) U Methamphetamines Scrn Negative (Negative) Ur MDMA Scrn (Ecstasy) Negative (Negative) U Benzodiazepines Scrn Negative (Negative) Urine Cocaine Screen Negative (Negative) U Marijuana (THC) Screen Negative (Negative) Ethyl Alcohol ( - 10) mg/dL 07/06/20 07/06/20 Range/Units 20:59 20:59 WBC (4.5-11.0) X10^3/uL RBC (4.5-5.9) X10^6/uL Hgb (13.5-17.5) g/dL Hct (41-53) % MCV (80-100) fL MCH (26-34) PG MCHC (30-36) % RDW (11.6-14.8) % Plt Count (150-400) X10^3/uL Neut % (Auto) (50-75) % Lymph % (Auto) (25-40) % [place] % (Auto) (3-14) % Eos % (Auto) (2-4) % Baso % (Auto) (0-2) % Neut # (Auto) (3320-4430) /uL Lymph # (Auto) (3229-8038) /uL Roosevelt # (Auto) (0-900) /uL Eos # (Auto) (0-450) /uL Baso # (Auto) (0-100) /uL Sodium 143 (137-145) mmol/L Potassium 4.3 (3.4-5.1) mmol/L Chloride 109 H (98-107) mmol/L Carbon Dioxide 28 (22-32) mmol/L BUN 20 (9-20) mg/dL Creatinine 1.00 (0.66-1.25) mg/dL Estimated GFR > 60.0 (>60) mL/min BUN/Creatinine Ratio 20.0 (6-22) Glucose 95 (70-100) mg/dL Calcium 9.1 (8.4-10.2) mg/dL Total Bilirubin 0.3 (0.2-1.3) mg/dL AST 24 (17-59) IU/L ALT 26 (<50) IU/L Alkaline Phosphatase 128 H (38-126) U/L Total Protein 7.6 (6.3-8.2) g/dL Albumin 4.5 (3.5-5.0) g/dL Globulin 3.1 (1.7-4.1) g/dL Albumin/Globulin Ratio 1.5 (1.0-2.8) TSH 1.28 (0.47-4.68) uIU/mL Free T4 0.88 (0.78-2.19) ng/dL Urine Color Urine Appearance Urine pH (4.5-8.0) Ur Specific [place] (1.000-1.035) Urine Protein (Negative) Urine Glucose (UA) (Negative) g/dL Urine Ketones (NEGATIVE) Urine Occult Blood (Negative) Urine Nitrate (Negative) Urine Bilirubin (NEGATIVE) Urine Urobilinogen (0.2) E.U./dL Ur Leukocyte Esterase (NEGATIVE) Urine RBC (0-5/HPF) Urine WBC (0-5/HPF) Uric Acid Crystals (None) Urine Bacteria (None) Ur Culture Indicated? Salicylates < 1.0 (<20) mg/dL U Opiates 300ng/mL cut (Negative) Ur Oxycodone Screen (Negative) Urine Methadone Screen (Negative) Acetaminophen < 10 L (10-30) ug/mL Ur Barbiturates Screen (Negative) U Tricyclic Antidepress (Negative) Ur Phencyclidine Scrn (Negative) Ur Amphetamines Screen (Negative) U Methamphetamines Scrn (Negative) Ur MDMA Scrn (Ecstasy) (Negative) U Benzodiazepines Scrn (Negative) Urine Cocaine Screen (Negative) U Marijuana (THC) Screen (Negative) Ethyl Alcohol 73 H ( - 10) mg/dL MDM Narrative Medical decision making narrative: Patient signed out to me by Dr. Naqvi. Awaiting social Work evaluation. Social Work evaluation revealed that he is involuntary and DCR. He is becoming anxious he was given a dose of Ativan requesting to go smoke but given nicotine patch instead 1:40 p.m. patient left the department. Police were called. Patient states he told someone that he was leaving a to go walk around the building he needed some fresh air and a cigarette. He returned to the ED. He states he denies suicidal or homicidal ideations today. He remains quite irritated and agitated. He has moved to room 13 clothing has been removed. He states he did not get his nightly medication list includes 100 mg of Seroquel and 2000 mg of Depakote. I confirm 2000 mg of Depakote but only 25 mg of Seroquel twice a day DCR here to evaluate patient. At this time does not meet in voluntary criteria. Outpatient follow-up has been arranged. Discharge Plan Departure Patient Disposition: Home Clinical Impression: PTSD (post-traumatic stress disorder) Instructions: Post-traumatic Stress Disorder Activity Restrictions/Additional Instructions: *You have been diagnosed with PTSD *What to do: [facility] will call you tomorrow to check on you and follow-up with you *Continue to take medications as directed *Follow up with your primary care provider in 2-3 days *Return to ER if you should have thoughts of suicide, homicide, depression or any new, worsening or concerning symptoms Prescriptions: No Action atomoxetine [Strattera] 80 mg capsule 80 mg PO DAILY RF: 0 coenzyme Q10 60 mg tablet 60 mg PO DAILY RF: 0 aspirin [Adult Low Dose Aspirin] 81 mg tablet,delayed release (DR/EC) 81 mg PO DAILY RF: 0 calcium 500 mg tablet 500 mg PO DAILY RF: 0 cholecalciferol (vitamin D3) 1,000 unit capsule 1,000 unit PO DAILY RF: 0 gabapentin 600 mg tablet 600 mg PO BID Qty: 60 RF: 3 bupropion HCl 300 mg tablet extended release 24 hr 300 mg PO QAM Qty: 30 RF: 3 quetiapine 25 mg tablet 25 mg PO BID PRN (Reason: PRN anxiety) Qty: 60 RF: 3 atomoxetine [Strattera] 80 mg capsule 80 mg PO QAM Qty: 30 RF: 3 quetiapine 200 mg tablet 200 mg PO BEDTIME Qty: 30 RF: 3 divalproex 500 mg tablet extended release 24 hr 2,000 mg PO BEDTIME Qty: 120 RF: 3 Referrals: See León MD [Physician] -
[2020-07-07] MEDS: buPROPion SR 150 MG TAB PO (06:35)
[2020-07-07] MEDS: GABAPENTIN 600 MG TABLET PO (06:35)
[2020-07-07 11:57] VITALS: BP 141/91; PULSE 94; O2SAT 99
[2020-07-07] MEDS: LORazepam 0.5 MG TABLET 1 MG PO (13:03)
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
--- NOTE | 2020-07-07 13:39 | CM.SWNOTE ---
POLISHER NUMERAL note Following assessment, POLISHER NUMERAL faxes attestation form to [facility] and calls [facility]. POLISHER NUMERAL speaks to Lelia and explains reason for requesting DCR dispatch. Lelia states she will dispatch DCR and DCR Sheila will contact ED. Due to end of POLISHER NUMERAL shift, POLISHER NUMERAL leaves [phone] for call back for DCR. Immediately following conversation with [facility], POLISHER NUMERAL is informed by MARCEL Donahue that patient eloped from ED. POLISHER NUMERAL informed Rowan that 911 needs to be contacted. Pl: Nursing staff to contact [facility] due to patient elopement, and POLISHER NUMERAL to fax clinicals to [facility]. LULÚ Hope
--- NOTE | 2020-07-07 13:50 | PC.NURSE ---
Rowan ROD reported patient had left department, per Jose CHINO DCR was being dispatched and [employer] should be notified. [employer] notified of patients departure from facility
--- NOTE | 2020-07-07 13:55 | CM.SWNOTE ---
AUTOPSY ASSISTANT note AUTOPSY ASSISTANT faxes clinicals to [facility]. AUTOPSY ASSISTANT then receives call from Symone, a nurse at Dr. León's office informing. Symone informs AUTOPSY ASSISTANT that she spoke with Dr. León who expressed support for contacting DCR. After this phone call, patient returns to ED and states I went for a walk, I went to see if Dr. León was around. Dr. Gimenez informs patient that he is not able to do this and transfers patient to room 13. AUTOPSY ASSISTANT places clinical packet in paper chart and updates RN Shasta and Sonam. Pl: Patient to receive evaluation by DCR today. LULÚ Hope
--- NOTE | 2020-07-07 14:20 | PC.NURSE ---
LUNCH TRUCK DRIVER: pt is laying down in bed. He is in safety scrubs and all personal items have been removed from his room. The lights are off and he has 1:1 observation.
[2020-07-07] MEDS: DIVALPROEX ER 250 MG TAB 2000 MG PO (14:38)
[2020-07-07] MEDS: QUETIAPINE 25 MG TABLET 50 MG PO (14:40)
--- NOTE | 2020-07-07 15:06 | PC.NURSE ---
POTATO PEELER: pt is sleeping in bed.
--- NOTE | 2020-07-07 15:17 | PC.NURSE ---
CLOTH GRADER: pt is sleeping.
--- NOTE | 2020-07-07 15:33 | PC.NURSE ---
COSMETICIAN APPRENTICE: pt is sleeping
--- NOTE | 2020-07-07 16:38 | PC.NURSE ---
BRIDGE MECHANIC: pt is talking with DCR.
[2020-07-07 17:09] VITALS: BP 137/103; PULSE 99; O2SAT 97
== END 2020-07-07 17:21 | disposition home or self-care (01) ==
PROVIDERS: Emergency Medicine; Emergency Provider Emergency Medicine
DX: F43.10 Post-traumatic stress disorder, unspecified (principal); F32.9 Major depressive disorder, single episode, unspecified; R45.851 Suicidal ideations; R45.1 Restlessness and agitation
CPT/HCPCS: 36415; 80053; 80305; 80320; 80329; 81001; 84439; 84443; 85025; 99284; G0480

== ENCOUNTER 2021-02-20 21:49 | Emergency (ER) | payer BC, SELFPAY ==
[2021-02-20 21:51] VITALS: BP 147/93; PULSE 81; RESP 22; TEMP 37.1; O2SAT 97
--- NOTE | 2021-02-20 21:57 | DI.RAD.S_ITS ---
PROCEDURE: XR CHEST 2V INDICATIONS: r/o fb possible chicken bone TECHNIQUE: 2 views of the chest were acquired. COMPARISON: [facility], CR, XR SOFT TISSUE NECK, 02/20/2021, 21:55. [facility], CR, XR CHEST 1V, 02/20/2019, 19:08. FINDINGS: Surgical changes and devices: None. Scattered subsegmental atelectasis and/or scarring. No focal consolidation. No pleural effusions or pneumothorax. Mediastinum: Mediastinal contours are normal. Heart size is normal. Bones and chest wall: No suspicious bony abnormalities. Soft tissues appear unremarkable. IMPRESSION: No radiopaque foreign body identified. No acute disease. Dictated by: Gigi Carroll M.D. on 02/21/2021 at 9:19 Approved by: Gigi Carroll M.D. on 02/21/2021 at 9:20
--- NOTE | 2021-02-20 21:57 | DI.RAD.S_ITS ---
PROCEDURE: XR SOFT TISSUE NECK INDICATIONS: r/o fb possible chicken bone TECHNIQUE: 2 views of the neck were acquired. COMPARISON: None. FINDINGS: Airway: The airway appears patent. Soft tissues: Prevertebral soft tissues are normal in thickness. The epiglottis and aryepiglottic folds appear normal. No soft tissue gas. Carotid atherosclerotic plaques incidentally noted. Bones: Cervical spondylosis and facet arthropathy. IMPRESSION: No radiopaque foreign body identified. Dictated by: Gigi Carroll M.D. on 02/21/2021 at 9:20 Approved by: Gigi Carroll M.D. on 02/21/2021 at 9:22
--- NOTE | 2021-02-20 22:58 | ED.GENADULT ---
HPI - General Adult General Chief complaint: Abdominal Pain Stated complaint: chicken stuck in throat Time Seen by Provider: 02/20/21 22:52 Source: patient Mode of arrival: Ambulatory History of Present Illness HPI narrative: Patient is a 55-year-old male here for evaluation what he thinks is a piece of chicken that is stuck in his throat. He was at his normal state health and was eating dinner at home when he took a bite what he thought was chicken. He noticed it was somewhat hard and when he swallowed he felt like something got stuck. He is unsure whether not it was actually piece of chicken or chicken bone. He was able to drink afterwards. He is not having any problems breathing. No problems tolerating his own secretions. Related Data Home Medications Medication Instructions Recorded Confirmed aspirin 81 mg tablet,delayed 81 mg PO DAILY 07/01/19 12/14/20 release (Adult Low Dose Aspirin) calcium 500 mg tablet 500 mg PO DAILY tab 07/01/19 12/14/20 cholecalciferol (vitamin D3) 25 1,000 unit PO DAILY 07/01/19 12/14/20 mcg (1,000 unit) capsule coenzyme Q10 60 mg tablet 60 mg PO DAILY 07/01/19 12/14/20 Previous Rx's Medication Instructions Recorded atomoxetine 80 mg capsule 80 mg PO QAM #30 cap 12/14/20 (Strattera) bupropion HCl 300 mg 24 hr tablet, 300 mg PO QAM #30 tab 12/14/20 extended release divalproex 500 mg tablet,extended 2,000 mg PO BEDTIME #120 tab 12/14/20 release 24 hr gabapentin 600 mg tablet 600 mg PO BID #60 tab 12/14/20 quetiapine 200 mg tablet 200 mg PO BEDTIME #30 tab 12/14/20 quetiapine 25 mg tablet 25 mg PO BID PRN #60 tab 12/14/20 Allergies Allergy/AdvReac Type Severity Reaction Status Date / Time No Known Drug Allergies Allergy Verified 12/14/20 14:04 Review of Systems Constitutional Constitutional: Reports system reviewed and no additional complaints, except as documented ENT Comments: Sore throat Cardiovascular Cardiovascular: Reports system reviewed and no additional complaints, except as documented Respiratory Comments: No problems breathing Gastrointestinal Comments: Feels like something stuck in his esophagus, no vomiting Musculoskeletal Musculoskeletal: Reports system reviewed and no additional complaints, except as documented Integumentary/Breasts Skin/Breast: Reports system reviewed and no additional complaints, except as documented Neurologic Neurologic: Reports system reviewed and no additional complaints, except as documented Hematologic/Lymphatic On Anticoagulants: No Patient History Medical History Back pain Bipolar affect, depressed Bipolar disorder Medication management Polysubstance dependence in early, early partial, sustained full, or sustained partial remission Social History Smoking Status: Current every day smoker Smoking Status: Current every day smoker alcohol intake frequency: holidays/special occasions only Substance Use Type: former substance user and methamphetamine Exam Initial Vital Signs Initial Vital Signs: Vital Signs Temperature 98.7 F 02/20/21 21:51 Pulse Rate 81 02/20/21 21:51 Respiratory Rate 22 02/20/21 21:51 Blood Pressure 147/93 H 02/20/21 21:51 Pulse Oximetry 97 02/20/21 21:51 HENMT Head: normal to inspection and normocephalic Eyes General: appearance normal, both eyes and all related structures Neck Neck: normal visual inspection Resp Effort & Inspection: normal respiratory effort Cardio Rate: regular rate Skin General: no rashes or lesions noted Neuro General: patient alert, patient awake and patient oriented x3 Extrem General: normal to inspection Psych Appearance: grossly normal and well kempt Course Orders Ordered: ED Orders 02/20/21 21:57 XR chest 2V Stat XR soft tissue neck Stat Vital Signs Vital signs: Vital Signs - 8 hr 02/20/21 21:51 Temperature 98.7 F Pulse Rate 81 Respiratory Rate 22 Blood Pressure 147/93 H Pulse Oximetry 97 Medical Decision Making Imaging Data Chest x-ray: Radiologist's Impression: Battery interstitial changes. No consolidation No radiopaque foreign body X-ray soft tissue neck: Radiologist's Impression: No radiopaque foreign body MDM Narrative Medical decision making narrative: The x-rays ordered prior to my evaluation. When they were resulted and I went to evaluate the patient he states that all of his symptoms have completely resolved. He was not having problems swallowing. No pain. No problems tolerating his oral intake. Will discharge patient home without further workup. He was given return precautions and follow-up instructions. He expressed understanding and agreement. Discharge Plan Departure Patient Disposition: Home Clinical Impression: Esophageal foreign body Activity Restrictions/Additional Instructions: There was nothing noted on the x-ray and at the time of your discharge he stated that things seem to have resolved. I do recommend that you contact your primary provider for follow-up. Return to the emergency department if you started developing worsening symptoms, vomiting, fevers or any other changes. Prescriptions: No Action coenzyme Q10 60 mg tablet 60 mg PO DAILY RF: 0 aspirin [Adult Low Dose Aspirin] 81 mg tablet,delayed release (DR/EC) 81 mg PO DAILY RF: 0 calcium 500 mg tablet 500 mg PO DAILY RF: 0 cholecalciferol (vitamin D3) 1,000 unit capsule 1,000 unit PO DAILY RF: 0 quetiapine 25 mg tablet 25 mg PO BID PRN (Reason: PRN anxiety) Qty: 60 RF: 3 quetiapine 200 mg tablet 200 mg PO BEDTIME Qty: 30 RF: 3 gabapentin 600 mg tablet 600 mg PO BID Qty: 60 RF: 3 divalproex 500 mg tablet extended release 24 hr 2,000 mg PO BEDTIME Qty: 120 RF: 3 bupropion HCl 300 mg tablet extended release 24 hr 300 mg PO QAM Qty: 30 RF: 3 atomoxetine [Strattera] 80 mg capsule 80 mg PO QAM Qty: 30 RF: 3
== END 2021-02-20 23:05 | disposition home or self-care (01) ==
PROVIDERS: Emergency Provider Emergency Medicine
DX: T18.128A Food in esophagus causing other injury, initial encounter (principal); R07.0 Pain in throat
CPT/HCPCS: 70360; 71046; 99281; 99283

== ENCOUNTER 2021-07-31 14:36 | Emergency (ER) | payer BC, SELFPAY ==
[2021-07-31 14:42] VITALS: BP 207/105; PULSE 99; RESP 16; TEMP 36.3; O2SAT 99; BMI 28.7
--- NOTE | 2021-07-31 14:49 | DI.RAD.S_ITS ---
PROCEDURE: XR CHEST 1V INDICATIONS: chest pain TECHNIQUE: One view of the chest was acquired. COMPARISON: [facility], CR, XR CHEST 2V, 02/20/2021, 21:55. FINDINGS: Surgical changes and devices: None. Lungs and pleura: Lungs are clear. No pleural effusions or pneumothorax. Mediastinum: Mediastinal contours appear normal. Heart size is normal. Bones and chest wall: No suspicious bony lesions. Overlying soft tissues appear unremarkable. IMPRESSION: No acute cardiopulmonary findings Approved by: Yusuf Faulkner M.D. on 07/31/2021 at 14:32
[2021-07-31 15:00] LABS: Add Manual Diff / Slide Review NO; Basophils Absolute Auto 100 /uL (0-100); Basophils Percent Auto 0.8 % (0-2); Eosinophils Absolute Auto 100 /uL (0-450); Eosinophils Percent Auto 0.9 % (2-4); Hematocrit 46.7 % (41-53); Hemoglobin 16.2 g/dL (13.5-17.5); Lymphocytes Absolute Auto 2400 /uL (1100-4500); Lymphocytes Percent Auto 32.3 % (25-40); Mean Corpuscular HGB Conc 34.7 % (30-36); Mean Corpuscular Hemoglobin 30.5 PG (26-34); Mean Corpuscular Volume 87.9 fL (80-100); Monocytes Absolute Auto 700 /uL (0-900); Monocytes Percent Auto 10.2 % (3-14); Neutrophils Absolute Auto 4100 /uL (1500-7000); Neutrophils Percent Auto 55.8 % (50-75); Platelet Count 196 X10^3/uL (150-400); Red Blood Cell Count 5.31 X10^6/uL (4.5-5.9); Red Cell Distribution Width 13.4 % (11.6-14.8); White Blood Cell Count 7.3 X10^3/uL (4.5-11.0)
[2021-07-31 15:12] LABS: Alanine Aminotransferase 50 IU/L (<50); Albumin 4.7 g/dL (3.5-5.0); Albumin Globulin Ratio 1.7 (1.0-2.8); Alkaline Phosphatase 115 U/L (38-126); Aspartate Aminotransferase 36 IU/L (17-59); BUN Creatinine Ratio 17.5 (6-22); Bilirubin Total 0.4 mg/dL (0.2-1.3); Blood Urea Nitrogen 18 mg/dL (9-20); Calcium 10.2 mg/dL (8.4-10.2); Carbon Dioxide 27 mmol/L (22-32); Chloride 105 mmol/L (98-107); Creatine Kinase 52 U/L (55-170); Estimated Glomerular Filt Rate > 60.0 mL/min (>60); Globulin 2.8 g/dL (1.7-4.1); Glucose 121 mg/dL (70-100); HEMOLYSIS 16 (0-50); Lipase 61 U/L (23-300); Magnesium 2.2 mg/dL (1.6-2.3); Potassium 4.2 mmol/L (3.4-5.1); Sodium 140 mmol/L (137-145); Total Protein 7.5 g/dL (6.3-8.2)
[2021-07-31 15:23] LABS: Troponin I < 0.012 ng/mL (0.01-0.034)
[2021-07-31 15:24] VITALS: PULSE 84
[2021-07-31 15:27] VITALS: BP 162/99; PULSE 89; O2SAT 98
--- NOTE | 2021-07-31 15:50 | ED.CHESTPAIN ---
HPI - Chest Pain General Chief Complaint: Chest Pain Stated Complaint: Severe chest pain Time Seen by Provider: 07/31/21 15:30 Source: patient Mode of arrival: Ambulatory Limitations: no limitations History of Present Illness HPI narrative: Patient is a 56-year-old male here for evaluation of occasional severe left-sided chest discomfort. He has had symptoms like this in the past but is been several years. He states that he has periods of time where he feels his heart beating. It does not cause him to get lightheaded. No shortness of breath. When this happens he has slight discomfort in the left side of his chest. Does not get worse with palpation or movement. Not worse with taking a deep breath. Is currently asymptomatic. Has not tried anything for the symptoms prior to arrival. When he had the symptoms several years ago he was seen in an outside facility [place] state and was subsequently discharged. Related Data Home Medications Medication Instructions Recorded Confirmed aspirin 81 mg tablet,delayed 81 mg PO DAILY 07/01/19 07/24/21 release (Adult Low Dose Aspirin) calcium 500 mg tablet 500 mg PO DAILY tab 07/01/19 07/24/21 cholecalciferol (vitamin D3) 25 1,000 unit PO DAILY 07/01/19 07/24/21 mcg (1,000 unit) capsule coenzyme Q10 60 mg tablet 60 mg PO DAILY 07/01/19 07/24/21 Previous Rx's Medication Instructions Recorded cyclobenzaprine 10 mg tablet 10 mg PO BEDTIME PRN #10 tab 04/19/21 divalproex 500 mg tablet,extended 2,000 mg PO BEDTIME #120 tab 05/01/21 release 24 hr gabapentin 600 mg tablet 600 mg PO BID #60 tab 05/08/21 quetiapine 25 mg tablet 25 mg PO BID PRN #60 tab 06/26/21 atomoxetine 80 mg capsule 80 mg PO QAM #30 cap 07/05/21 (Strattera) bupropion HCl 300 mg 24 hr tablet, 300 mg PO QAM #30 tab 07/10/21 extended release quetiapine 200 mg tablet 200 mg PO BEDTIME #30 tab 07/10/21 Allergies Allergy/AdvReac Type Severity Reaction Status Date / Time No Known Drug Allergies Allergy Verified 07/31/21 14:42 Review of Systems Constitutional Constitutional: Denies fever(s) and Denies headache(s) ENT Ears, Nose, Mouth, and Throat: Denies headache(s) Cardiovascular Cardiovascular: Reports as per HPI and Reports system reviewed and no additional complaints, except as documented Respiratory Respiratory: Reports as per HPI and Reports system reviewed and no additional complaints, except as documented Gastrointestinal Gastrointestinal: Reports system reviewed and no additional complaints, except as documented Musculoskeletal Musculoskeletal: Reports system reviewed and no additional complaints, except as documented Neurologic Neurologic: Denies headache(s) Hematologic/Lymphatic On Anticoagulants: No Patient History Medical History Back pain Bipolar affect, depressed Bipolar disorder Medication management Polysubstance dependence in early, early partial, sustained full, or sustained partial remission Social History Smoking Status: Current every day smoker Smoking Status: Current every day smoker alcohol intake frequency: holidays/special occasions only Substance Use Type: former substance user and methamphetamine Exam Initial Vital Signs Initial Vital Signs: Vital Signs Temperature 97.3 F L 07/31/21 14:42 Pulse Rate 99 H 07/31/21 14:42 Respiratory Rate 16 07/31/21 14:42 Blood Pressure 207/105 H 07/31/21 14:42 Pulse Oximetry 99 07/31/21 14:42 Const General: cooperative and healthy appearing HENCA Head: normal to inspection and normocephalic Resp Effort & Inspection: normal respiratory effort Auscultation: clear to auscultation bilaterally Cardio Rate: regular rate Rhythm: regular rhythm GI Inspection: normal to inspection Skin General: no rashes or lesions noted Neuro General: patient alert, patient awake, patient oriented x3 and moves all extremities Extrem General: normal to inspection and capillary refill normal Psych Appearance: grossly normal and well kempt Scores GCS Dest[place] coma scale eye opening: Spontaneous [place] coma scale verbal response: Orientated [place] coma scale motor response: Obey commands [place] coma scale total score: 15 Course Orders Ordered: ED Orders 07/31/21 14:45 Complete Blood Count AUTO DIFF Stat Comprehensive Metabolic Panel Stat Lipase Stat Magnesium Stat Troponin & CK Cardiac Panel Stat 07/31/21 14:49 XR chest 1V Stat EKG-12 Lead Stat 07/31/21 17:11 Troponin I Stat Vital Signs Vital signs: Vital Signs - 8 hr 07/31/21 14:42 07/31/21 15:24 07/31/21 15:27 Temperature 97.3 F L Pulse Rate 99 H 84 89 Respiratory Rate 16 Blood Pressure 207/105 H 162/99 H Pulse Oximetry 99 98 MDM - Chest Pain Lab Data Attestation: I reviewed the patient's lab results. Result diagrams: 07/31/21 14:45 07/31/21 14:45 Labs: Lab Results 07/31/21 07/31/21 07/31/21 Range/Units 14:45 14:45 17:11 WBC 7.3 (4.5-11.0) X10^3/uL RBC 5.31 (4.5-5.9) X10^6/uL Hgb 16.2 (13.5-17.5) g/dL Hct 46.7 (41-53) % MCV 87.9 (80-100) fL MCH 30.5 (26-34) PG MCHC 34.7 (30-36) % RDW 13.4 (11.6-14.8) % Plt Count 196 (150-400) X10^3/uL Neut % (Auto) 55.8 (50-75) % Lymph % (Auto) 32.3 (25-40) % Warrick % (Auto) 10.2 (3-14) % Eos % (Auto) 0.9 L (2-4) % Baso % (Auto) 0.8 (0-2) % Neut # (Auto) 4100 (0278-5945) /uL Lymph # (Auto) 2400 (5169-6450) /uL Warrick # (Auto) 700 (0-900) /uL Eos # (Auto) 100 (0-450) /uL Baso # (Auto) 100 (0-100) /uL Sodium 140 (137-145) mmol/L Potassium 4.2 (3.4-5.1) mmol/L Chloride 105 (98-107) mmol/L Carbon Dioxide 27 (22-32) mmol/L BUN 18 (9-20) mg/dL Creatinine 1.03 (0.66-1.25) mg/dL Estimated GFR > 60.0 (>60) mL/min BUN/Creatinine Ratio 17.5 (6-22) Glucose 121 H (70-100) mg/dL Calcium 10.2 (8.4-10.2) mg/dL Magnesium 2.2 (1.6-2.3) mg/dL Total Bilirubin 0.4 (0.2-1.3) mg/dL AST 36 (17-59) IU/L ALT 50 H (<50) IU/L Alkaline Phosphatase 115 (38-126) U/L Total Creatine Kinase 52 L (55-170) U/L CK-MB (CK-2) TNP CK-MB (CK-2) Rel Index TNP Troponin I < 0.012 < 0.012 (0.01-0.034) ng/mL Total Protein 7.5 (6.3-8.2) g/dL Albumin 4.7 (3.5-5.0) g/dL Globulin 2.8 (1.7-4.1) g/dL Albumin/Globulin Ratio 1.7 (1.0-2.8) Lipase 61 (23-300) U/L Imaging Data Chest x-ray: Radiologist's Impression: [address] [address] XRay Report Signed Patient: Yemi Elaine MR#: [id number] : 1965 Acct:[id number] Age/Sex: 56 / M Date of Service: 07/31/21 Loc: ED Accession Number: [id number] ?? Procedure: XR chest 1V Ordering Provider: Yemi Hummel D.O. PROCEDURE:? XR CHEST 1V ? INDICATIONS:? chest pain ? TECHNIQUE:? One view of the chest was acquired.? ? COMPARISON:? [facility], , XR CHEST 2V, 02/20/2021, 21:55. ? FINDINGS:? ? Surgical changes and devices:? None.? ? Lungs and pleura:? Lungs are clear.? No pleural effusions or pneumothorax.? ? Mediastinum:? Mediastinal contours appear normal.? Heart size is normal.? ? Bones and chest wall:? No suspicious bony lesions.? Overlying soft tissues appear unremarkable.? ? IMPRESSION:? No acute cardiopulmonary findings ? ? ? Approved by: Yusuf Faulkner M.D. on 07/31/2021 at 14:32? ECG Data Attestation: I personally reviewed and interpreted this ECG as follows: Interpretation: Sinus rhythm Ventricular rate 90 Occasional PVC Normal QRS Normal axis No ST T wave changes MDM Narrative Medical decision making narrative: Patient is nontoxic appearing. Is afebrile. Chest x-ray is unremarkable. EKG is unremarkable except for PVCs. Troponins negative x2. Patient was informed that he should contact his primary doctor for a follow-up to discuss stress testing. He was given return precautions. He expressed understanding and agreement. Discharge Plan Departure Patient Disposition: Home Clinical Impression: Atypical chest pain Instructions: DI for Atypical Chest Pain Activity Restrictions/Additional Instructions: Continue to take all of your medications as directed. Contact your primary doctor for follow-up to discuss further workup to include the indications for a stress test. Return to the emergency department for any new or worsening symptoms. Prescriptions: No Action cyclobenzaprine 10 mg tablet 10 mg PO BEDTIME PRN (Reason: muscle spasm) Qty: 10 0RF gabapentin 600 mg tablet 600 mg PO BID Qty: 60 3RF coenzyme Q10 60 mg tablet 60 mg PO DAILY 0RF aspirin [Adult Low Dose Aspirin] 81 mg tablet,delayed release (DR/EC) 81 mg PO DAILY 0RF calcium 500 mg tablet 500 mg PO DAILY 0RF cholecalciferol (vitamin D3) 1,000 unit capsule 1,000 unit PO DAILY 0RF quetiapine 25 mg tablet 25 mg PO BID PRN (Reason: PRN anxiety) Qty: 60 3RF divalproex 500 mg tablet extended release 24 hr 2,000 mg PO BEDTIME Qty: 120 3RF atomoxetine [Strattera] 80 mg capsule 80 mg PO QAM Qty: 30 3RF quetiapine 200 mg tablet 200 mg PO BEDTIME Qty: 30 3RF bupropion HCl 300 mg tablet extended release 24 hr 300 mg PO QAM Qty: 30 3RF
[2021-07-31 17:46] LABS: Troponin I < 0.012 ng/mL (0.01-0.034)
--- NOTE | 2021-07-31 18:08 | PC.NURSE ---
pt stated he had chest pain so he started driving here, about 10min, lasted til he got here, then another few minutes in the waiting room. resolved by the time he was in room 4.
== END 2021-07-31 18:07 | disposition home or self-care (01) ==
PROVIDERS: Emergency Provider Emergency Medicine
DX: R07.89 Other chest pain (principal)
CPT/HCPCS: 36415; 71045; 80053; 82550; 83690; 83735; 84484; 85025; 93005; 93010; 99283; 99284

== ENCOUNTER → 2021-09-04 15:38 | Outpatient (CLI) | payer BC, SELFPAY ==
[2021-09-04 17:18] LABS: Hepatitis B Surface Antigen NEGATIVE s/c (NEGATIVE)
[2021-09-04 17:38] LABS: HIV 1 & 2 Ab/Ag 4th Gen Combo NEGATIVE (NEGATIVE); Hep C Virus Ab w/Reflex Quant NEGATIVE s/c (NEGATIVE)
[2021-09-04 17:48] LABS: Urine N gonorrhoeae NOT DETECTED
[2021-09-04 17:50] LABS: Urine Chlamydia NOT DETECTED
[2021-09-05 08:17] LABS: HSV 2 IGG AB < 0.91 index (0.00-0.90); HSV1IGG < 0.91 index (0.00-0.90)
[2021-09-05 12:11] LABS: RPR Screen Non Reactive (Non Reactive)
== END ==
LOC: LAB 15:39
PROVIDERS: Referring Provider Physician Assistant; Visit Provider Physician Assistant
DX: Z11.3 Encounter for screening for infections with a predominantly sexual mode of transmission (principal)
CPT/HCPCS: 36415; 86592; 86695; 86696; 86803; 87340; 87389; 87491; 87591

== ENCOUNTER 2022-02-12 18:06 | Emergency (ER) | payer BC, SELFPAY ==
[2022-02-12 18:10] VITALS: BP 155/89; PULSE 91; RESP 19; TEMP 36.6; O2SAT 99; BMI 27.4
--- NOTE | 2022-02-12 18:29 | PC.NURSE ---
pt states he did meth this morning and shortly after he noticed he has pain on the right side of his neck that hurt to turn his head. also c/o pain in his right knee, right calf, and left armpit. states he has had similiar episodes of pain in his neck but on the left side in the past. also mentioned he was working very physically at his brothers house all day yesterday and states he might have over done it.
--- NOTE | 2022-02-12 18:39 | ED.NECK ---
HPI - Neck Pain/Injury General Chief Complaint: Neck Pain/Injury Stated Complaint: NECK PAIN FINGERS FEEL TINGLING Time Seen by Provider: 02/12/22 18:11 Mode of arrival: Ambulatory History of Present Illness HPI Narrative: 56-year-old male smoker with history of PTSD, polysubstance abuse and bipolar disorder presents with a chief complaint of some left-sided neck pain and tingling down his left arm on occasion. He states that he has been having neck pain and problems off and on since an injury suffered about 2-3 years ago and has never sought any evaluation or treatment. He states that he had largely been finding well until he re-injured his neck about a week ago when he was sleeping and woke up quickly and then struck his head on the wall which cause neck pain. Today he complains of a mild numbness and tingling down his left arm and some mild left-sided neck pain. He denies any headache or blurred vision. Does not take any blood thinners. He denies weakness of his arm. He has no chest pain or shortness of breath nor nausea vomiting or diarrhea. Related Data Home Medications Medication Instructions Recorded Confirmed aspirin 81 mg tablet,delayed 81 mg PO DAILY 07/01/19 09/04/21 release (Adult Low Dose Aspirin) calcium 500 mg tablet 500 mg PO DAILY 07/01/19 09/04/21 cholecalciferol (vitamin D3) 25 1,000 unit PO DAILY 07/01/19 09/04/21 mcg (1,000 unit) capsule coenzyme Q10 60 mg tablet 60 mg PO DAILY 07/01/19 09/04/21 Previous Rx's Medication Instructions Recorded cyclobenzaprine 10 mg tablet 10 mg PO BEDTIME PRN muscle spasm 04/19/21 #10 tabs bupropion HCl 300 mg 24 hr tablet, 300 mg PO QAM #30 tabs 10/26/21 extended release atomoxetine 80 mg capsule 80 mg PO QAM Attention #30 caps 02/07/22 (Strattera) divalproex 500 mg tablet,extended 2,000 mg PO BEDTIME Mood 02/07/22 release 24 hr stabilization #120 tabs gabapentin 600 mg tablet See Rx Instructions .Route 02/07/22 .COMPLEX #60 tabs quetiapine 200 mg tablet 200 mg PO BEDTIME #30 tabs 02/07/22 quetiapine 25 mg tablet 25 mg PO BID PRN PRN anxiety #60 02/07/22 tabs gabapentin 300 mg capsule 300 mg PO BEDTIME #14 caps 02/12/22 ketorolac 10 mg tablet 10 mg PO Q6H PRN pain #14 tabs 02/12/22 methylprednisolone 4 mg tablets in See Rx Instructions PO .COMPLEX 02/12/22 a dose pack (Medrol (Rafael)) #21 ea Allergies Allergy/AdvReac Type Severity Reaction Status Date / Time No Known Drug Allergies Allergy Verified 02/12/22 18:13 Review of Systems Review of Systems Narrative: GENERAL: Denies chills, fatigue, malaise, fever, sweats. HEENT: Denies sinus pain, ear pain, sore throat, difficulty swallowing, dizziness. RESPIRATORY: Denies dyspnea, cough, wheezing, hemoptysis, sputum. CARDIOVASCULAR: Denies chest pain, palpitations, orthopnea, edema, GASTROINTESTINAL: Denies nausea, vomiting, abdominal pain, diarrhea, constipation, melena. : Denies dysuria, frequency, incontinence, hematuria, urinary retention. MUSCULOSKELETAL: See HPI SKIN: Denies rash, skin lesions, or other NEUROLOGIC: See HPI PSYCHIATRIC: No concerning psychosocial issues. 12 point review of systems is negative except for those stated above Patient History Medical History Back pain Bipolar affect, depressed Bipolar disorder Medication management Polysubstance dependence in early, early partial, sustained full, or sustained partial remission Social History Smoking Status: Current every day smoker Smoking Status: Current every day smoker alcohol intake frequency: holidays/special occasions only Substance Use Type: methamphetamine Exam Narrative Exam Narrative: GENERAL: [56] year old patient appears stated age. Well-developed patient, in mild distress. HEAD: Atraumatic. Normocephalic. EYES: Pupils equal round and reactive. Extraocular motions intact. No scleral icterus. No injection or drainage. ENT: Nose without bleeding, purulent drainage. Throat without erythema, tonsillar hypertrophy or exudate. Airway patent. NECK: Trachea midline. No midline bony tenderness, no increased left arm symptoms with axial loading. Mild tenderness to palpation of the paraspinal musculature of the left side of his neck. Left upper extremity with full strength, range of motion, no measurable weakness and currently no sensory deficit. CARDIOVASCULAR: Regular rate and rhythm without murmurs, gallops, or rubs. RESPIRATORY: Clear to auscultation. Breath sounds equal bilaterally. No wheezes, rales, or rhonchi. GASTROINTESTINAL: Abdomen soft, non-tender, nondistended. EXTREMITIES: No edema or joint tenderness. BACK: Nontender without deformity or crepitance. No flank tenderness. NEURO: AOx3. SKIN: No rash or erythema of visible areas Initial Vital Signs Initial Vital Signs: Vital Signs Temperature 97.9 F 02/12/22 18:10 Pulse Rate 91 H 02/12/22 18:10 Respiratory Rate 19 02/12/22 18:10 Blood Pressure 155/89 H 02/12/22 18:10 Pulse Oximetry 99 02/12/22 18:10 Oxygen Delivery Method 02/12/22 18:10 Course Orders Ordered: ED Orders 02/12/22 19:08 CT cervical spine wo con Stat Discontinued Medications Gabapentin (Gabapentin 300 Mg Capsule) 300 mg PO NOW ONE Stop: 02/12/22 19:09 Last Admin: 02/12/22 19:18 Dose: 300 mg Documented By: NR Prednisone (Prednisone 20 Mg Tablet) 40 mg PO NOW ONE Stop: 02/12/22 19:09 Last Admin: 02/12/22 19:18 Dose: 40 mg Documented By: NR Vital Signs Vital signs: Vital Signs - 8 hr 02/12/22 20:12 Pulse Rate 86 Blood Pressure 130/71 Pulse Oximetry 99 Oxygen Delivery Method Room Air MDM - Neck Pain/Injury Imaging Data CT - cervical spine: Radiologist's Impression: Close Cervical Spine CT (Signed) Radha Robles - 02/12/22 [place] [address] CT Scan Report Signed Patient: Yemi Elaine MR#: [id number] : 1965 Acct:[id number] Age/Sex: 56 / M Date of Service: 02/12/22 Loc: ED Accession Number: [id number] ?? Procedure: CT cervical spine wo con Ordering Provider: Maxime Naqvi D.O. PROCEDURE:? CT CERVICAL SPINE WO CON ? INDICATIONS:? chronic neck pain, multiple injuries ? TECHNIQUE:? Noncontrast 3 mm thick sections acquired from the skull base to the T4 level.? Sagittal and coronal reformats were then constructed.? For radiation dose reduction, the following was used:? automated exposure control, adjustment of mA and/or kV according to patient size.? ? COMPARISON:? None. ? FINDINGS:? Image quality:? Excellent.? ? Bones:? No fractures or dislocations.? Visualized superior ribs are intact. Spine degenerative disc disease and facet arthropathy. ? Soft tissues:? Prevertebral soft tissues are normal in thickness.? No paravertebral hematomas.? No apical pneumothoraces.? ? ? IMPRESSION:? No fracture. No acute osseous lesion. If symptoms and/or clinical suspicion for pathology persists, evaluation with MRI should be considered for further assessment. ? Dictated by: Radha Robles MD, PhD on 02/12/2022 at 19:45 ? ? Approved by: Radha Robles MD, PhD on 02/12/2022 at 19:47 ? Discharge Plan Departure Patient Disposition: Home Clinical Impression: Cervical radiculopathy Instructions: Chronic Neck Pain Activity Restrictions/Additional Instructions: *You have been diagnosed with [neck pain with radiculopathy. As we discussed her history and physical exam are reassuring and imaging demonstrates no fracture or abnormal findings] *What to do: *Please continue to take your regular medications as directed. [x ] New medication prescriptions sent to your pharmacy: [ [facility]] [ ] New medication written as a paper prescription [ ] No new medications given *Please follow up with your primary care provider in 2-3 days, call for an appointment. Let them know you were seen in the Emergency Department and that we ask that you be seen in follow up. We will electronically transmit a record of today's note if your PCP is in our system *If you do not have a primary care provider please contact the [facility] Resource line at [phone]. They will ask some questions about your medical history and help get you set up with a doctor in the community. *Return to Emergency Department if you should have any new, worsening or concerning symptoms, such as [fever greater than 101 F, shaking chills, worsening pain, persistent vomiting or other bothersome symptoms] Prescriptions: New ketorolac 10 mg tablet 10 mg PO Q6H PRN (Reason: pain) Qty: 14 0RF gabapentin 300 mg capsule 300 mg PO BEDTIME Qty: 14 0RF methylprednisolone [Medrol (Rafael)] 4 mg tablets,dose pack See Rx Instructions .ROUTE .COMPLEX Qty: 21 0RF Rx Instructions: orally per package directions No Action cyclobenzaprine 10 mg tablet 10 mg PO BEDTIME PRN (Reason: muscle spasm) Qty: 10 0RF coenzyme Q10 60 mg tablet 60 mg PO DAILY aspirin [Adult Low Dose Aspirin] 81 mg tablet,delayed release (DR/EC) 81 mg PO DAILY calcium 500 mg tablet 500 mg PO DAILY cholecalciferol (vitamin D3) 1,000 unit capsule 1,000 unit PO DAILY bupropion HCl 300 mg tablet extended release 24 hr 300 mg PO QAM Qty: 30 3RF atomoxetine [Strattera] 80 mg capsule 80 mg PO QAM Qty: 30 3RF divalproex 500 mg tablet extended release 24 hr 2,000 mg PO BEDTIME Qty: 120 3RF gabapentin 600 mg tablet See Rx Instructions .ROUTE .COMPLEX Qty: 60 11RF Dose Instruction: TAKE 1 TABLET TWICE A DAY Rx Instructions: TAKE 1 TABLET TWICE A DAY quetiapine 25 mg tablet 25 mg PO BID PRN (Reason: PRN anxiety) Qty: 60 3RF quetiapine 200 mg tablet 200 mg PO BEDTIME Qty: 30 3RF Visit Report Forms: Patient Portal/API
--- NOTE | 2022-02-12 19:08 | DI.CT.S_ITS ---
PROCEDURE: CT CERVICAL SPINE WO CON INDICATIONS: chronic neck pain, multiple injuries TECHNIQUE: Noncontrast 3 mm thick sections acquired from the skull base to the T4 level. Sagittal and coronal reformats were then constructed. For radiation dose reduction, the following was used: automated exposure control, adjustment of mA and/or kV according to patient size. COMPARISON: None. FINDINGS: Image quality: Excellent. Bones: No fractures or dislocations. Visualized superior ribs are intact. Spine degenerative disc disease and facet arthropathy. Soft tissues: Prevertebral soft tissues are normal in thickness. No paravertebral hematomas. No apical pneumothoraces. IMPRESSION: No fracture. No acute osseous lesion. If symptoms and/or clinical suspicion for pathology persists, evaluation with MRI should be considered for further assessment. Dictated by: Radha Robles MD, PhD on 02/12/2022 at 19:45 Approved by: Radha Robles MD, PhD on 02/12/2022 at 19:47
[2022-02-12] MEDS: GABAPENTIN 300 MG CAPSULE PO (19:18)
[2022-02-12] MEDS: predniSONE 20 MG TABLET 40 MG PO (19:18)
[2022-02-12 20:12] VITALS: BP 130/71; PULSE 86; O2SAT 99
== END 2022-02-12 20:13 | disposition home or self-care (01) ==
PROVIDERS: Emergency Provider Emergency Medicine
DX: M54.12 Radiculopathy, cervical region (principal)
CPT/HCPCS: 72125; 99283

== ENCOUNTER 2022-03-02 17:18 | Emergency (ER) | payer BC, SELFPAY ==
[2022-03-02] VITALS (18 sets, daily range): BP systolic 152–196; BP diastolic 83–128; PULSE 75–110; RESP 13–52; TEMP 37; O2SAT 90–98
--- NOTE | 2022-03-02 17:34 | PC.NURSE ---
smoked some meth with a friend. The friend freaked out and then he freaked out and then he began rolling around on the ground. He complains of right arm weakness but does not show any right arm weakness. 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
--- NOTE | 2022-03-02 17:59 | DI.CT.S_ITS ---
PROCEDURE: CT ANGIO HEAD AND NECK INDICATIONS: Right-sided weakness TECHNIQUE: After the administration of intravenous contrast, 1 mm thick sections acquired from the aortic arch through the [place] of [place]. Post-contrast 4.5 mm thick sections then re-acquired from the foramen magnum to the vertex. 3-dimensional djmjrar-cmobevaia-ywedrelpyr (MIP) and/or volume rendering reformats were acquired of the central intracranial vasculature and neck separately. For radiation dose reduction, the following was used: automated exposure control, adjustment of mA and/or kV according to patient size. COMPARISON: [facility], CT, CT STROKE, 03/02/2022, 18:02. FINDINGS: Image quality: Excellent. BRAIN: CSF spaces: Ventricles are normal in size and shape. Basal cisterns are patent. No extra-axial fluid collections. Brain: No midline shift. No intracranial bleeds or masses. Neri-white matter interface appears intact. Skull and face: Calvarium and facial bones appear intact, without suspicious lesions. Orbits appear normal. Sinuses: There is partial opacification of the ethmoid air cells bilaterally. A mucous retention cyst is seen in the right maxillary sinus. The remaining visualized paranasal sinuses and the mastoid air cells are clear. HEAD CT ANGIOGRAPHY: Anterior circulation: Intracranial internal carotid arteries demonstrate mild atherosclerotic calcifications without significant stenosis. The flow within the paired anterior cerebral arteries is normal and symmetric. The flow within the middle cerebral arteries is normal and symmetric. The anterior communicating artery is seen. No aneurysms are seen. Posterior circulation: Visualized portions of the vertebral arteries demonstrate normal caliber, and join to form a normal appearing basilar artery. Flow within the posterior cerebral arteries is normal and symmetric. No aneurysms are seen. NECK CT ANGIOGRAPHY: Carotid system: The great vessels demonstrate a conventional anatomy as they arise from the aortic arch. The origins of the common carotid arteries appear patent. The common carotid arteries demonstrate normal caliber and courses. Mild atherosclerotic calcifications of the carotid bifurcations without significant stenosis of the internal carotid arteries. The internal carotid arteries demonstrate normal calibers and courses. Posterior circulation: The origins of the vertebral arteries both appear widely patent. Uncovertebral joint and facet hypertrophy at the C4-5 level on the left result in focal moderate narrowing of the left vertebral artery. The remainder of the extracranial portions of both vertebral arteries also demonstrate normal courses and calibers. They join to form a normal appearing basilar artery. Soft tissues: Visualized neck soft tissues demonstrate no suspicious abnormalities. Bones: No suspicious bony lesions. Multilevel degenerative changes are seen in the spine. IMPRESSION: 1. Extrinsic compression of the left vertebral artery is seen due to osteophyte formation at the C4-5 level with focal moderate narrowing of the vertebral artery as positioned at the time of this exam. 2. Otherwise, no significant arterial stenosis or occlusion within the head or neck. 3. No acute intracranial abnormality. Any quantitative measurements of stenosis were performed using NASCET criteria. Dictated by: John Dowell M.D. on 03/02/2022 at 18:30 Approved by: John Dowell M.D. on 03/02/2022 at 18:40
--- NOTE | 2022-03-02 17:59 | DI.CT.S_ITS ---
PROCEDURE: CT STROKE INDICATIONS: Right-sided weakness, smoke meth TECHNIQUE: Noncontrast 4.5 mm thick angled axial sections acquired from the foramen magnum to the vertex, with coronal reformats. For radiation dose reduction, the following was used: automated exposure control, adjustment of mA and/or kV according to patient size. COMPARISON: None. FINDINGS: Image quality: Excellent. CSF spaces: Basal cisterns are patent. No extra-axial fluid collections. Ventricles are normal in size and shape. Brain: No midline shift. No intracranial masses or hemorrhage. Neri-white matter interface is normal. Skull and face: Calvarium and visualized facial bones are intact, without suspicious lesions. Sinuses: There is partial opacification of the bilateral ethmoid air cells. The remaining visualized paranasal sinuses and the mastoid air cells are clear. IMPRESSION: No acute intracranial abnormality. Findings were discussed with the referring physician, Dr. Brewster, by telephone on 03/02/2022 at 6:10 PM. This study fulfills neurological imaging criteria for inclusion or exclusion of acute stroke therapies based on available published neurological imaging guidelines. Dictated by: John Dowell M.D. on 03/02/2022 at 18:09 Approved by: John Dowell M.D. on 03/02/2022 at 18:11
[2022-03-02 18:26] LABS: Add Manual Diff / Slide Review NO; Basophils Absolute Auto 100 /uL (0-100); Basophils Percent Auto 0.8 % (0-2); Eosinophils Absolute Auto 100 /uL (0-450); Eosinophils Percent Auto 1.1 % (2-4); Hematocrit 41.8 % (41-53); Hemoglobin 14.7 g/dL (13.5-17.5); Lymphocytes Absolute Auto 2000 /uL (1100-4500); Lymphocytes Percent Auto 25.1 % (25-40); Mean Corpuscular HGB Conc 35.3 % (30-36); Mean Corpuscular Hemoglobin 29.8 PG (26-34); Mean Corpuscular Volume 84.3 fL (80-100); Monocytes Absolute Auto 800 /uL (0-900); Monocytes Percent Auto 10.3 % (3-14); Neutrophils Absolute Auto 5000 /uL (1500-7000); Neutrophils Percent Auto 62.7 % (50-75); Platelet Count 263 X10^3/uL (150-400); Red Blood Cell Count 4.95 X10^6/uL (4.5-5.9); Red Cell Distribution Width 14.1 % (11.6-14.8)
--- NOTE | 2022-03-02 18:26 | ED.GENADULT ---
HPI - General Adult General Chief complaint: Toxicology Problem Stated complaint: Smoking meth, altered mental status Time Seen by Provider: 03/02/22 17:58 Source: patient and EMS Mode of arrival: EMS History of Present Illness HPI narrative: 56-year-old gentleman with bipolar disorder, methamphetamine use who was reportedly smoking some methamphetamine with a friend of his while sitting on his front appropriate at 4:30 a.m. this afternoon. Both went to stand up and patient found that his right side simply was not working. He came to the emergency room via medics. Taken immediately to the CT scanner and initial brain CT does not show acute bleeding. His initial blood pressure was 192/101. by 6:30 165/93 without intervention. He states that he does take medications but isn't sure which ones. He states that he was doing fine until 430 when he could not stand up from the porch. Patient does not take a blood thinner, does not recall any head bleeds or prior head injuries no recent surgeries. Notes that he has had some rectal bleeding particularly after anal intercourse but it has been quite a while. He has no history of GI bleeding otherwise. 6:48 brother, with whom he lives. Notes a couple episodes of brief dyarthria over last 24hrs with complete resolution. Spoke with him and NORMAL this morning 10am. Neighbor saw him sitting on the porch at 430. at 440 he was calling out because he couldn't move, neighbor called brother at 445 who called 911. Related Data Home Medications Medication Instructions Recorded Confirmed aspirin 81 mg tablet,delayed 81 mg PO DAILY 07/01/19 09/04/21 release (Adult Low Dose Aspirin) calcium 500 mg tablet 500 mg PO DAILY 07/01/19 09/04/21 cholecalciferol (vitamin D3) 25 1,000 unit PO DAILY 07/01/19 09/04/21 mcg (1,000 unit) capsule coenzyme Q10 60 mg tablet 60 mg PO DAILY 07/01/19 09/04/21 Previous Rx's Medication Instructions Recorded cyclobenzaprine 10 mg tablet 10 mg PO BEDTIME PRN muscle spasm 04/19/21 #10 tabs bupropion HCl 300 mg 24 hr tablet, 300 mg PO QAM #30 tabs 10/26/21 extended release atomoxetine 80 mg capsule 80 mg PO QAM Attention #30 caps 02/07/22 (Strattera) divalproex 500 mg tablet,extended 2,000 mg PO BEDTIME Mood 02/07/22 release 24 hr stabilization #120 tabs gabapentin 600 mg tablet See Rx Instructions .Route 02/07/22 .COMPLEX #60 tabs quetiapine 200 mg tablet 200 mg PO BEDTIME #30 tabs 02/07/22 quetiapine 25 mg tablet 25 mg PO BID PRN PRN anxiety #60 02/07/22 tabs gabapentin 300 mg capsule 300 mg PO BEDTIME #14 caps 02/12/22 ketorolac 10 mg tablet 10 mg PO Q6H PRN pain #14 tabs 02/12/22 methylprednisolone 4 mg tablets in See Rx Instructions PO .COMPLEX 02/12/22 a dose pack (Medrol (Rafael)) #21 ea Allergies Allergy/AdvReac Type Severity Reaction Status Date / Time No Known Drug Allergies Allergy Verified 03/02/22 17:26 Review of Systems Review of Systems ROS Unobtainable: Unobtainable due to mental status/LOC and Other (hign on methamphetamine) Patient History Medical History Back pain Bipolar affect, depressed Bipolar disorder Medication management Polysubstance dependence in early, early partial, sustained full, or sustained partial remission Social History Smoking Status: Current every day smoker Smoking Status: Current every day smoker alcohol intake frequency: holidays/special occasions only Substance Use Type: methamphetamine Exam Initial Vital Signs Initial Vital Signs: Vital Signs Temperature 98.6 F 03/02/22 17:26 Pulse Rate 110 H 03/02/22 17:26 Respiratory Rate 36 H 03/02/22 17:26 Blood Pressure 192/101 H 03/02/22 17:26 Pulse Oximetry 97 03/02/22 17:26 Oxygen Delivery Method 03/02/22 17:26 General: Chronically ill-appearing but in no acute distress. Able to give a complete and coherent history. Twitchy and having difficulty sitting still in bed but able to focus and cooperate HEENT: Moist mucous membranes, normal sclera with reactive pupils, Neck: No JVD, supple Respiratory: Lungs are clear to auscultation, no wheezing no rales no rhonchi. Full and symmetrical air movement Cardiac: Regular rate and rhythm no murmurs no bruits Abdomen: Soft, nontender, good bowel tones, no flank pain Skin: Warm and dry, no rashes, no ?picking sores? no track chris Neurologic: Mild right facial droop decreased sensation to the right face arm leg decreased strength right arm right leg significant ataxia right arm and mild dysarthria. NIH score equal 7 Extremities: No trauma, well perfused Psych: Cooperative, non pressured speech, good eye contact NIH Stroke Scale/Score (NIHSS) RESULT SUMMARY: 7 points NIH Stroke Scale INPUTS: 1A: Level of consciousness ?> 0 = Alert; keenly responsive 1B: Ask month and age ?> 0 = Both questions right 1C: 'Blink eyes' & 'squeeze hands' ?> 0 = Performs both tasks 2: Horizontal extraocular movements ?> 0 = Normal 3: Visual britt ?> 2 = Complete hemianopia 4: Facial palsy ?> 1 = Minor paralysis (flat nasolabial fold, smile asymmetry) 5A: Left arm motor drift ?> 0 = No drift for 10 seconds 5B: Right arm motor drift ?> 1 = Drift, but doesn't hit bed 6A: Left leg motor drift ?> 0 = No drift for 5 seconds 6B: Right leg motor drift ?> 0 = No drift for 5 seconds 7: Limb Ataxia ?> 1 = Ataxia in 1 Limb 8: Sensation ?> 1 = Mild-moderate loss: less sharp/more dull 9: Language/aphasia ?> 0 = Normal; no aphasia 10: Dysarthria ?> 1 = Mild-moderate dysarthria: slurring but can be understood 11: Extinction/inattention ?> 0 = No abnormality Course Orders Ordered: ED Orders 03/02/22 17:29 Consult to [employer] - Advertisement Compositor Stat 03/02/22 17:47 CT head/brain wo con Stat EKG-12 Lead Stat 03/02/22 17:[address] angio head and neck Stat 03/02/22 18:19 Complete Blood Count AUTO DIFF Stat Comprehensive Metabolic Panel Stat Partial Thromboplastin Time Stat Prothrombin Time INR Stat Troponin & CK Cardiac Panel Stat 03/02/22 18:31 Urinalysis and Microscopic Stat Urine Drug Screen, Rapid Stat 03/02/22 18:40 COVID19 -Nasal RAPID/Pre-Proc Stat Discontinued Medications Diazepam (Diazepam 10 Mg/2 Ml Syringe) 5 mg IV NOW ONE Stop: 03/02/22 20:02 Last Admin: 03/02/22 20:14 Dose: 5 mg Documented By: PRAKASH Diazepam (Diazepam 10 Mg/2 Ml Syringe) 5 mg IV NOW ONE Stop: 03/02/22 20:42 Last Admin: 03/02/22 20:53 Dose: 5 mg Documented By: PRAKASH Hydralazine HCl (Hydralazine 20 Mg/Ml Vial) 10 mg IV NOW ONE Stop: 03/02/22 20:56 Last Admin: 03/02/22 20:58 Dose: 10 mg Documented By: PRAKASH Hydromorphone HCl (Hydromorphone 0.5 Mg Inj) 0.5 mg IV NOW ONE Stop: 03/02/22 20:02 Last Admin: 03/02/22 20:09 Dose: 0.5 mg Documented By: PRAKASH Sodium Chloride (Normal Saline 0.9%) 1,000 mls @ 150 mls/hr IV CONT FROYLAN Last Infusion: 03/02/22 21:06 Dose: 0 mls/hr Documented By: Infusion: 03/02/22 20:46 Dose: 0 mls/hr Documented By: Admin: 03/02/22 18:48 Dose: 150 mls/hr Documented By: PRAKASH Alteplase, Recombinant (Activase) 70.4 mg in 70.4 mls @ 70.4 mls/hr 0.81 mg/kg (70.4 mg) IV NOW ONE Stop: 03/02/22 19:40 Last Infusion: 03/02/22 20:30 Dose: 0 mls/hr Documented By: Infusion: 03/02/22 19:17 Dose: 0 mls/hr Documented By: Admin: 03/02/22 19:17 Dose: 70.4 mls/hr Documented By: PRAKASH Alteplase, Recombinant (Activase) 7.8 mg in 7.8 mls @ 468 mls/hr 0.09 mg/kg (7.8 mg) IV NOW ONE Stop: 03/02/22 18:44 Last Infusion: 03/02/22 19:26 Dose: 0 mls/hr Documented By: Admin: 03/02/22 19:16 Dose: 468 mls/hr Documented By: PRAKASH Vital Signs Vital signs: Vital Signs - 8 hr 03/02/22 17:26 07/16/22 18:29 03/02/22 18:30 Temperature 98.6 F Pulse Rate 110 H 90 95 H Respiratory Rate 36 H 27 H 52 H Blood Pressure 192/101 H Pulse Oximetry 97 98 98 Oxygen Delivery Method Room Air 03/02/22 19:41 03/02/22 18:43 03/02/22 18:43 Temperature Pulse Rate 85 85 Respiratory Rate 14 13 Blood Pressure 165/94 H 152/102 H Pulse Oximetry 98 94 Oxygen Delivery Method 03/02/22 19:00 03/02/22 19:00 03/02/22 19:22 Temperature Pulse Rate 87 Respiratory Rate 17 Blood Pressure 177/99 H 173/128 H Pulse Oximetry 96 Oxygen Delivery Method 03/02/22 19:22 03/02/22 19:24 03/02/22 19:24 Temperature Pulse Rate 88 84 Respiratory Rate 31 H 19 Blood Pressure 174/101 H Pulse Oximetry 95 94 Oxygen Delivery Method 03/02/22 19:30 03/02/22 19:30 03/02/22 19:42 Temperature Pulse Rate 80 Respiratory Rate 14 Blood Pressure 175/85 H 194/85 H Pulse Oximetry 96 Oxygen Delivery Method 03/02/22 19:42 03/02/22 19:45 03/02/22 19:45 Temperature Pulse Rate 87 81 Respiratory Rate 34 H 45 H Blood Pressure 165/94 H Pulse Oximetry 94 90 L Oxygen Delivery Method 03/02/22 20:16 03/02/22 20:00 03/02/22 20:01 Temperature Pulse Rate 80 77 Respiratory Rate 20 35 H Blood Pressure 184/97 H 184/97 H Pulse Oximetry 98 93 Oxygen Delivery Method 03/02/22 20:01 03/02/22 20:58 03/02/22 20:22 Temperature Pulse Rate 75 80 Respiratory Rate 41 H Blood Pressure 196/89 H 182/105 H Pulse Oximetry 92 Oxygen Delivery Method 03/02/22 20:22 03/02/22 20:24 03/02/22 20:24 Temperature Pulse Rate 78 75 Respiratory Rate 18 16 Blood Pressure 177/83 H Pulse Oximetry 94 94 Oxygen Delivery Method 03/02/22 20:30 03/02/22 20:30 Temperature Pulse Rate 75 Respiratory Rate 14 Blood Pressure 186/96 H Pulse Oximetry 96 Oxygen Delivery Method Medical Decision Making Lab Data Result diagrams: 03/02/22 18:19 03/02/22 18:19 Labs: Lab Results 03/02/22 03/02/22 03/02/22 Range/Units 18:19 18:19 18:19 WBC 8.0 (4.5-11.0) X10^3/uL RBC 4.95 (4.5-5.9) X10^6/uL Hgb 14.7 (13.5-17.5) g/dL Hct 41.8 (41-53) % MCV 84.3 (80-100) fL MCH 29.8 (26-34) PG MCHC 35.3 (30-36) % RDW 14.1 (11.6-14.8) % Plt Count 263 (150-400) X10^3/uL Neut % (Auto) 62.7 (50-75) % Lymph % (Auto) 25.1 (25-40) % Rogers % (Auto) 10.3 (3-14) % Eos % (Auto) 1.1 L (2-4) % Baso % (Auto) 0.8 (0-2) % Neut # (Auto) 5000 (4641-8878) /uL Lymph # (Auto) 2000 (8396-7680) /uL Rogers # (Auto) 800 (0-900) /uL Eos # (Auto) 100 (0-450) /uL Baso # (Auto) 100 (0-100) /uL PT 10.9 (10.1-12.7) SECONDS INR 1.0 (0.9-1.3) APTT 33 (26.4-36.2) SECONDS Sodium 140 (137-145) mmol/L Potassium 3.9 (3.4-5.1) mmol/L Chloride 108 H (98-107) mmol/L Carbon Dioxide 25 (22-32) mmol/L BUN 22 H (9-20) mg/dL Creatinine 0.99 (0.66-1.25) mg/dL Estimated GFR > 60 (>60) mL/min BUN/Creatinine Ratio 22.2 H (6-22) Glucose 104 H (70-100) mg/dL Calcium 9.2 (8.4-10.2) mg/dL Total Bilirubin 0.3 (0.2-1.3) mg/dL AST 23 (17-59) IU/L ALT 21 (<50) IU/L Alkaline Phosphatase 116 (38-126) U/L Total Creatine Kinase 116 (55-170) U/L CK-MB (CK-2) 3.17 H (<2.37) ng/mL CK-MB (CK-2) Rel Index 2.7 (1.5-5.0) % Troponin I < 0.012 (0.01-0.034) ng/mL Total Protein 6.9 (6.3-8.2) g/dL Albumin 4.2 (3.5-5.0) g/dL Globulin 2.7 (1.7-4.1) g/dL Albumin/Globulin Ratio 1.6 (1.0-2.8) Urine Color Urine Appearance Urine pH (4.5-8.0) Ur Specific Vesta (1.000-1.035) Urine Protein (Negative) Urine Glucose (UA) (Negative) g/dL Urine Ketones (NEGATIVE) Urine Occult Blood (Negative) Urine Nitrate (Negative) Urine Bilirubin (NEGATIVE) Urine Urobilinogen (0.2) E.U./dL Ur Leukocyte Esterase (NEGATIVE) Urine RBC (0-5/HPF) Urine WBC (0-5/HPF) Urine Bacteria (None) Ur Culture Indicated? U Opiates 300ng/mL cut (Negative) Ur Oxycodone Screen (Negative) Urine Methadone Screen (Negative) Ur Barbiturates Screen (Negative) U Tricyclic Antidepress (Negative) Ur Phencyclidine Scrn (Negative) Ur Amphetamines Screen (Negative) U Methamphetamines Scrn (Negative) Ur MDMA Scrn (Ecstasy) (Negative) U Benzodiazepines Scrn (Negative) Urine Cocaine Screen (Negative) U Marijuana (THC) Screen (Negative) SARS-CoV-2 (PCR) (Negative) 03/02/22 03/02/22 03/02/22 Range/Units 18:31 18:31 18:40 WBC (4.5-11.0) X10^3/uL RBC (4.5-5.9) X10^6/uL Hgb (13.5-17.5) g/dL Hct (41-53) % MCV (80-100) fL MCH (26-34) PG MCHC (30-36) % RDW (11.6-14.8) % Plt Count (150-400) X10^3/uL Neut % (Auto) (50-75) % Lymph % (Auto) (25-40) % Rogers % (Auto) (3-14) % Eos % (Auto) (2-4) % Baso % (Auto) (0-2) % Neut # (Auto) (6569-3348) /uL Lymph # (Auto) (4349-5029) /uL Rogers # (Auto) (0-900) /uL Eos # (Auto) (0-450) /uL Baso # (Auto) (0-100) /uL PT (10.1-12.7) SECONDS INR (0.9-1.3) APTT (26.4-36.2) SECONDS Sodium (137-145) mmol/L Potassium (3.4-5.1) mmol/L Chloride (98-107) mmol/L Carbon Dioxide (22-32) mmol/L BUN (9-20) mg/dL Creatinine (0.66-1.25) mg/dL Estimated GFR (>60) mL/min BUN/Creatinine Ratio (6-22) Glucose (70-100) mg/dL Calcium (8.4-10.2) mg/dL Total Bilirubin (0.2-1.3) mg/dL AST (17-59) IU/L ALT (<50) IU/L Alkaline Phosphatase (38-126) U/L Total Creatine Kinase (55-170) U/L CK-MB (CK-2) (<2.37) ng/mL CK-MB (CK-2) Rel Index (1.5-5.0) % Troponin I (0.01-0.034) ng/mL Total Protein (6.3-8.2) g/dL Albumin (3.5-5.0) g/dL Globulin (1.7-4.1) g/dL Albumin/Globulin Ratio (1.0-2.8) Urine Color Yellow Urine Appearance Clear Urine pH 6.5 (4.5-8.0) Ur Specific Vesta 1.015 (1.000-1.035) Urine Protein Negative (Negative) Urine Glucose (UA) Negative (Negative) g/dL Urine Ketones Negative (NEGATIVE) Urine Occult Blood Trace-lysed (Negative) Urine Nitrate Negative (Negative) Urine Bilirubin Negative (NEGATIVE) Urine Urobilinogen 0.2 (0.2) E.U./dL Ur Leukocyte Esterase Negative (NEGATIVE) Urine RBC 0-1/hpf (0-5/HPF) Urine WBC 0-1/hpf (0-5/HPF) Urine Bacteria None seen (None) Ur Culture Indicated? Cult not indicated U Opiates 300ng/mL cut Negative (Negative) Ur Oxycodone Screen Negative (Negative) Urine Methadone Screen Negative (Negative) Ur Barbiturates Screen Negative (Negative) U Tricyclic Antidepress Negative (Negative) Ur Phencyclidine Scrn Negative (Negative) Ur Amphetamines Screen Positive H (Negative) U Methamphetamines Scrn Positive H (Negative) Ur MDMA Scrn (Ecstasy) Negative (Negative) U Benzodiazepines Scrn Negative (Negative) Urine Cocaine Screen Negative (Negative) U Marijuana (THC) Screen Negative (Negative) SARS-CoV-2 (PCR) Negative (Negative) Point of Care Testing Glucose POC 79 Point of care testing: Point of Care Testing Glucose POC 79 ECG Data Interpretation: Sinus tach at a rate of 101 with occasional PVCs Normal axis, normal intervals No acute ischemic changes MDM Narrative Medical decision making narrative: Stroke timeline CT read 18:09 Exam, discussion, NIH=6. Discussion with patient 18:30 discussion with Stroke neurology 18:39 reviewed with Patient. risks/benefits disucssed. decision to give TPA at 10:39 18:44 order in 6:55 additional information from his brother. 2-3 episodes of slightly slurred speech yesterday with complete resolution. Entirely normal speech behavior etc. this morning at 10:00 a.m.. Neighbor corroborates him sitting on the porch at 4:30 p.m. getting up at 4:40 p.m. with obvious right-sided deficits. Given the question of whether this was prodromal or TIAs or small strokes yesterday recommendation was made to hold tPA at this time. 705pm discussed with nurses and TPA held prior to initial push. 710pm again discussed with DR Stanley. After discussion with her colleagues and in light of the fairly definite descriptions given from the neighbor across the street noting that he walked out to the porch sat down 4:30 and then began yelling at 4:40 could not stand up, decided to proceed with tPA. 714pm nurses notified, medicine is still availble and ready for administration 724pm TPA bolus given 750pm complaining of pain inthe Right thigh. appears to have contusion and bleeding into anterior quad. Kevin wrap placed. Will follow 825 leg felling better with kevin wrap. pt without significant neurologic changes. Remains hemodynamically stable with current blood pressure 177/83 Ambulance has been arranged patient will be transferred to [facility] for stroke post tPA acute management Critical Care Time Critical Care Time Critical Care Time: Yes Total Critical Care Time: 33 Attestation: Critical care time is separate from other billable procedures. There is a high probability of a significant, sudden or life-threatening deterioration that requires my full and direct attention, intervention and personal management. This critical care time includes consultation with family and other consulting doctors, review of records, and interpretation of data from labs, EKGs and imaging as well as managements of acute stroke Discharge Plan Departure Patient Disposition: [facility] Clinical Impression: Stroke aborted by administration of thrombolytic agent, Methamphetamine use, Methamphetamine intoxication Prescriptions: No Action cyclobenzaprine 10 mg tablet 10 mg PO BEDTIME PRN (Reason: muscle spasm) Qty: 10 0RF coenzyme Q10 60 mg tablet 60 mg PO DAILY aspirin [Adult Low Dose Aspirin] 81 mg tablet,delayed release (DR/EC) 81 mg PO DAILY calcium 500 mg tablet 500 mg PO DAILY cholecalciferol (vitamin D3) 1,000 unit capsule 1,000 unit PO DAILY bupropion HCl 300 mg tablet extended release 24 hr 300 mg PO QAM Qty: 30 3RF atomoxetine [Strattera] 80 mg capsule 80 mg PO QAM Qty: 30 3RF divalproex 500 mg tablet extended release 24 hr 2,000 mg PO BEDTIME Qty: 120 3RF gabapentin 600 mg tablet See Rx Instructions .ROUTE .COMPLEX Qty: 60 11RF Dose Instruction: TAKE 1 TABLET TWICE A DAY Rx Instructions: TAKE 1 TABLET TWICE A DAY quetiapine 25 mg tablet 25 mg PO BID PRN (Reason: PRN anxiety) Qty: 60 3RF quetiapine 200 mg tablet 200 mg PO BEDTIME Qty: 30 3RF ketorolac 10 mg tablet 10 mg PO Q6H PRN (Reason: pain) Qty: 14 0RF gabapentin 300 mg capsule 300 mg PO BEDTIME Qty: 14 0RF methylprednisolone [Medrol (Rafael)] 4 mg tablets,dose pack See Rx Instructions .ROUTE .COMPLEX Qty: 21 0RF Rx Instructions: orally per package directions Referrals: Miscellaneous,Doctor MD [Primary Care Provider] -
[2022-03-02 18:34] LABS: Prothrombin Time 10.9 SECONDS (10.1-12.7)
[2022-03-02 18:37] LABS: PTT Partial Thromboplastin Tim 33 SECONDS (26.4-36.2)
[2022-03-02 18:45] LABS: Alanine Aminotransferase 21 IU/L (<50); Albumin 4.2 g/dL (3.5-5.0); Albumin Globulin Ratio 1.6 (1.0-2.8); Alkaline Phosphatase 116 U/L (38-126); Aspartate Aminotransferase 23 IU/L (17-59); BUN Creatinine Ratio 22.2 (6-22); Bilirubin Total 0.3 mg/dL (0.2-1.3); Blood Urea Nitrogen 22 mg/dL (9-20); Calcium 9.2 mg/dL (8.4-10.2); Carbon Dioxide 25 mmol/L (22-32); Chloride 108 mmol/L (98-107); Creatine Kinase 116 U/L (55-170); Estimated Glomerular Filt Rate > 60 mL/min (>60); Globulin 2.7 g/dL (1.7-4.1); Glucose 104 mg/dL (70-100); HEMOLYSIS < 15 (0-50); Potassium 3.9 mmol/L (3.4-5.1); Sodium 140 mmol/L (137-145); Total Protein 6.9 g/dL (6.3-8.2)
[2022-03-02 18:47] LABS: Appearance Urine UA CLEAR; Bilirubin Urine UA NEGATIVE (NEGATIVE); Color Urine UA YELLOW; Glucose Urine UA NEGATIVE (Negative); Ketones Urine UA NEGATIVE (NEGATIVE); Leukocyte Esterase Urine UA NEGATIVE (NEGATIVE); Nitrite Urine UA NEGATIVE (Negative); Occult Blood Urine UA TRACE-LYSED (Negative); Protein Urine UA NEGATIVE (Negative); Specific Gravity Urine UA 1.015 (1.000-1.035); UR Morphine/Opiate cutoff 300 Negative (Negative); Urine Amphetamines Positive (Negative); Urine Barbiturates Negative (Negative); Urine Benzodiazepines Negative (Negative); Urine Cocaine Negative (Negative); Urine MDMA Negative (Negative); Urine Methadone Negative (Negative); Urine Methamphetamines Positive (Negative); Urine Oxycodone Negative (Negative); Urine Phencyclidine Negative (Negative); Urine Tetrahydrocannabinol Negative (Negative); Urine Tricyclic Antidepressant Negative (Negative); Urobilinogen Urine UA 0.2 E.U./dL (0.2); pH Urine UA 6.5 (4.5-8.0)
[2022-03-02] MEDS: SODIUM CHLORIDE 0.9% 1,000 ML 150 ML IV (18:48)
[2022-03-02 18:57] LABS: Bacteria Urine None Seen; Culture Indicated Urine Cult Not Indicated; RBC Urine 0-1/HPF (0-5/HPF); WBC Urine 0-1/HPF (0-5/HPF)
[2022-03-02 18:57] LABS: Troponin I < 0.012 ng/mL (0.01-0.034)
[2022-03-02 19:01] LABS: CKMB % Relative Index 2.7 % (1.5-5.0); Creatine Kinase MB 3.17 ng/mL (<2.37)
[2022-03-02] MEDS: ALTEPLASE 468 MG IV (19:16)
[2022-03-02] MEDS: ALTEPLASE IV (19:17)
[2022-03-02 19:45] LABS: COVID19 -Nasal RAPID Negative (Negative)
--- NOTE | 2022-03-02 20:00 | PC.NURSE ---
The patient is tolerating the TPA well. He states that his right arm is feeling better and the sensation in his right leg is improving. He does state that he has a pain in his right thigh. There appears to be a small palpable purple lump under the skin over his right thigh approx 2 cm. The TPA infusion was stopped and Dr robertson was consulted. She came and examined the patient and instructed me to turn the infusion and wrap the leg with an marilee wrap.
[2022-03-02] MEDS: HYDROMORPHONE 0.5 MG INJ IV (20:09)
[2022-03-02] MEDS: diazePAM 10 MG/2 ML SYRINGE 5 MG IV ×2 (20:14→20:53)
--- NOTE | 2022-03-02 20:47 | PC.NURSE ---
Addendum entered by Portia Rangel R.N. 03/02/22 20:49: Pt agree to transport however has had benzodiazapines, Brother Antonio Elaine verbalized understanding and agreement with transfer and current plan of care. Original Note: Transfer: Pt accepted to [facility] ED to ED transfer under care of Dr. Stanley. Transfer center updated w/ eta. Reports / covid test faxed as requested. [facility] ground ALS transfer ok by Dr. Lagunas. Family (brother Antonio aware)
[2022-03-02] MEDS: HYDRALAZINE 20 MG/ML VIAL 10 MG IV (20:58)
== END 2022-03-02 21:28 | disposition short-term general hospital (02) ==
PROVIDERS: Emergency Medicine; Emergency Provider Emergency Medicine
DX: I63.9 Cerebral infarction, unspecified (principal); F15.129 Other stimulant abuse with intoxication, unspecified; R29.810 Facial weakness; Z20.822 Contact with and (suspected) exposure to COVID-19
CPT/HCPCS: 70450; 70496; 70498; 80053; 80305; 81001; 82550; 82553; 82962; 84484; 85025; 85610; 85730; 87635; 93005; 93010; 96361; 96374; 96375; 96376; 99284; 99291; 99292; C9803; J0360; J1170; J2997; J3360; Q9967

== ENCOUNTER 2022-05-15 14:30 | Outpatient (RCR) | payer BC, SELFPAY ==
--- NOTE | 2022-05-06 16:13 | ST.OPIE ---
Visit Care Team Role Provider Type [place]STON Rosado Attending Provider Non-Staff Family Provider Primary Care Provider Referring Provider Specialty: Nursing Address: [address], [address], [place], [address] Email: Speech-Language Pathology Initial Evaluation [employer] [employer]IR[facility] Adult Cognitive Linguistic Eval Start: 05/06/22 13:31 Freq: Status: Active Protocol: Document 05/06/22 13:31 LNK (Rec: 05/06/22 16:12 LNK [id number]) Adult Cognitive Linguistic Evaluation Patient Information Patient History Pt is a 56-year-old man with an extensive history of substance use disorder, ADHD and bipolar disorder dating back to his childhood. He has an extensive family history of both substance use and depression. 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 On March 02, 2022 pt was admitted [facility] ED with right side weakness. A CT scan showed no intracranial bleeding. Pt also noted he had a couple episodes of brief dyarthria prior to coming to the ED, with complete resolution. Pt was transferred to [facility]. He was Discharged from [facility] on March 26. Education Level H.S. Vision Vision Status Impaired Comments wears glasses; c/o difficulty seeing to his right side - needs to turn head Previous Therapy Previous Speech-Language Therapy No Subjective Patient Report Pt presents as anxious with rapid speech. He appears to have a mild dysarthria/ dysfluent speech Informal Assessment Receptive Language Normal Yes Expressive Language Impairment(s) Expression of complex thoughts /ideas Pragmatic Language Normal fidgity; thoughts seem disorganized in conversation Pragmatic Language Impairment(s) Topic maintenance Speech Impairment(s) Imprecise articulation,Fast speech rate Cognition Normal No Cognitive Impairment(s) Attention,Short-term memory, Thought organization Formal Assessment Standardized Test/Screener Type [facility] Mental Status (UMS) Administration Complete Results The results indicated mild aphasia and mild cognitive deficits. With the pt's history of medical history, it is difficult to know how much of the pt's communication difficulty is related to his CVA or his substance abuse. The Aphasia Quick Test was administered with the results indicating mild dysarthria and mild word finding difficulty. Both were evident in conversational speech more than through testing. The SLUMS was also administered with the pt scoring 22/30 indicating mild cognitive dysfunction. Pt was oriented and was able to remember 1/5 words after a delay. He was unable to calculate mental math . His clock drawing noted uneven spacing albeit with the correct time. Finally he was able to correctly answer 3/4 questions after listening to a short story. The results, overall, appear to indicate the pt has difficulty with attention, working memory, planning and staying on topic. He appeared to be somewhat labile when talking about communicating with his sister. Although pt demonstrates mild WFD, he does eventually complete a message by using a different word or describing what he is talking about. Both are effective strategies for WFD. A reduction in speaking rate would be beneficial for others to follow conversations. Cognitive therapy is recommended to target attention and memory ( immediate, working and short term). Cognitive Communication Deficits Self-awareness of Cognitive- Situational awareness ( Communication Deficits recognition of problem in context;in real time) Concomitant Factors Concomitant Factors Visual field neglect Comment Pt described a right side visual field cut Prognosis Prognosis Good Based on Comorbidities,Time since onset Plan of Care Speech-Language Treatment Yes Frequency weekly or every other week Duration 3-4 months Patient/Caregiver Education Patient expressed understanding of evaluation, Patient expressed agreement with goals and treatment plans Short Term Goals Pt will independently slow speaking rate via external cuing (tapping, listener's facial expressions) @ 80% opportunities Pt will participate in activities designed to target increased attention during tasks @ 80% of opportunities.
--- NOTE | 2022-05-06 16:13 | ST.OPPOC ---
Physical, Occupational & Speech Therapy At [facility] Visit Care Team Role Provider Type HOUSTON Rosado Attending Provider Non-Staff Family Provider Primary Care Provider Referring Provider Address: Roma OCHOA [address], [address], [place], [address] Speech Pathology Plan of Care Patient History Pt is a 56-year-old man with an extensive history of substance use disorder, ADHD and bipolar disorder dating back to his childhood. He has an extensive family history of both substance use and depression. 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 On March 02, 2022 pt was admitted [facility] ED with right side weakness. A CT scan showed no intracranial bleeding. Pt also noted he had a couple episodes of brief dyarthria prior to coming to the ED, with complete resolution. Pt was transferred to [facility]. He was Discharged from [facility] on March 26. Short Term Goals Pt will independently slow speaking rate via external cuing (tapping, listener's facial expressions) @ 80% opportunities Pt will participate in activities designed to target increased attention during tasks @ 80% of opportunities. Comment: Electronically Signed by: MERCEDES Varner 05/06/22 [id number] If you are in agreement with this Plan of Care, please return a signed and dated copy. I have reviewed this Plan of Care and certify that the skilled therapy services above are required to meet the patient?s needs. Physician Signature Date Printed Name and Credentials Clinical Instructor Signature Printed Name and Credentials
--- NOTE | 2022-05-15 17:30 | ST.OPTN ---
Visit Care Team Role Provider Type HOUSTON Rosado Attending Provider Non-Staff Family Provider Primary Care Provider Referring Provider Address: [facility] [address], [address], [place], [address] CHIEF CLOTH FINISHING RANGE OPERATOR Treatment Note CHIEF CLOTH FINISHING RANGE OPERATOR Treatment Note Start: 05/06/22 13:31 Freq: Status: Active Protocol: Document 05/15/22 17:19 LNK (Rec: 05/15/22 17:30 LNK [id number]) Speech Pathology Treatment Note Session Time Visit Start Time 14:30 Visit Stop Time 15:30 Total Visit Minutes 60 Visit Information Visit Number 2 Setting Treatment Setting Outpatient Care Visit Type Note Type Treatment Note Next Note Type Next Note Type Treatment Note General Information Patient History Pt is a 56-year-old man with an extensive history of substance use disorder, ADHD and bipolar disorder dating back to his childhood. He has an extensive family history of both substance use and depression. 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 On March 02, 2022 pt was admitted [facility] ED with right side weakness. A CT scan showed no intracranial bleeding. Pt also noted he had a couple episodes of brief dyarthria prior to coming to the ED, with complete resolution. Pt was transferred to [facility]. He was Discharged from [facility] on March 26. Subjective Identification Type Name,Date of Observations/Patient Presentation The results of pt's initial assessment indicated mild aphasia and mild cognitive deficits. With the pt's history of medical history, it is difficult to know how much of the pt's communication difficulty is related to his CVA or his substance abuse. The Aphasia Quick Test was administered with the results indicating mild dysarthria and mild word finding difficulty. Both were evident in conversational speech more than through testing. The SLUMS was also administered with the pt scoring 22/30 indicating mild cognitive dysfunction. Pt was oriented and was able to remember 1/5 words after a delay. He was unable to calculate mental math . His clock drawing noted uneven spacing albeit with the correct time. Finally he was able to correctly answer 3/4 questions after listening to a short story. The results, overall, appear to indicate the pt has difficulty with attention, working memory, planning and staying on topic. He appeared to be somewhat labile when talking about communicating with his sister. Although pt demonstrates mild WFD, he does eventually complete a message by using a different word or describing what he is talking about. Both are effective strategies for WFD. A reduction in speaking rate would be beneficial for others to follow conversations. Cognitive therapy is recommended to target attention and memory ( immediate, working and short term). Chief Complaint(s) Cognitive Rehab Expectation/Goals: Patient Goals Learn strategies to help him be independent Patient Knowledge/Awareness of CHIEF CLOTH FINISHING RANGE OPERATOR Role Good in Treatment Objective Short Term Goals Pt will independently slow speaking rate via external cuing (tapping, listener's facial expressions) @ 80% opportunities Pt will participate in activities designed to target increased attention during tasks @ 80% of opportunities. Treatment Activities Pt completed a functional needs assessment today. Pt indicated that his greatest need is to remember appointments, learn to use his phone with alarms to remind him of important information and to improve enough to get a job. Educated pt on external memory strategies such as important information in one place only Information [employer]. He has a calendar, but sometimes get confused about am vs. pm. Recommended a portable calendar and a memory notebook to keep important information with him . pt is to bring portable calendar, and memory book with him next session. Pt agreed. written HEP sent with pt to aid in memory. Assessment Patient Response to Treatment Good Impairments Identified Cognitive communication Plan Amount of Therapy Recommended 3-4 Months Frequency of Treatment Once a Week Length of Session 45 Minutes Therapeutic Contents Cognitive-Linguistic Training Therapy Recommendations Continue with Current Program
--- NOTE | 2022-05-20 14:07 | ST-OP ANOTE ---
Physical, Occupational & Speech Therapy At [facility] Speech Therapy Note Pt was no show/no call today
--- NOTE | 2022-05-21 13:19 | ST.OPDS ---
Visit Care Team Role Provider Type HOUSTON Rosado Attending Provider Non-Staff Family Provider Primary Care Provider Referring Provider Address: [facility] [address], [address], [place], [address] PROJECT PRODUCTION ENGINEER Treatment Note PROJECT PRODUCTION ENGINEER Treatment Note Start: 05/06/22 13:31 Freq: Status: Active Protocol: Document 05/21/22 13:16 LNK (Rec: 05/21/22 13:18 LNK [id number]) Speech Pathology Treatment Note Visit Type Note Type Discharge Summary General Information Patient History Pt is a 56-year-old man with an extensive history of substance use disorder, ADHD and bipolar disorder dating back to his childhood. He has an extensive family history of both substance use and depression. 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 On March 02, [address] [facility] ED with right side weakness. A CT scan showed no intracranial bleeding. Pt also noted he had a couple episodes of brief dyarthria prior to coming to the ED, with complete resolution. Pt was transferred to [facility]. He was Discharged from [facility] on March 26. Subjective Observations/Patient Presentation The results of pt's initial assessment indicated mild aphasia and mild cognitive deficits. With the pt's history of medical history, it is difficult to know how much of the pt's communication difficulty is related to his CVA or his substance abuse. The Aphasia Quick Test was administered with the results indicating mild dysarthria and mild word finding difficulty. Both were evident in conversational speech more than through testing. The SLUMS was also administered with the pt scoring 22/30 indicating mild cognitive dysfunction. Objective Treatment Activities Pt's sister called to cancel all of his appointments as he is moving back to [place]. Sister indicated it was ok to discharge.
== END 2022-05-23 11:38 | disposition home or self-care (01) ==
LOC: SP 14:30
PROVIDERS: Family Provider Nurse Practitioner; PCP Nurse Practitioner; Referring Provider Nurse Practitioner; Visit Provider Nurse Practitioner
DX: I63.9 Cerebral infarction, unspecified (principal)
CPT/HCPCS: 96105; 97129; 97130